=== PATIENT | male | born 1940 | race Caucasian/White ===

== ENCOUNTER 2018-01-15 12:38 | Outpatient (CLI) | payer MEDICARE, BC ==
--- NOTE | 2018-01-15 14:26 | RAD ---
TWO VIEWS CHEST: Comparison: 06-14-14 History: Shortness of breath. FINDINGS: Single view of the chest shows a normal sized cardiomediastinal silhouette. There is no evidence of c onsolidation, mass, or pleural effusion. Degenerative changes are seen in the spine. IMPRESSION: No evidence of acute cardiopulmonary disease. POS: [facility]
--- NOTE | 2018-01-15 14:53 | NM ---
VQ SCAN: Date: 01/15/18 HISTORY: Pulmonary hypertension, unspecified. TECHNIQUE: Ventilation perfusion scan was performed using 20 mCi Xenon-133 by inhalation for the ventilation calixto dy followed by the intravenous administration of 6 mCi technetium-99m MAA for the perfusion scan. FINDINGS: Comparison made with chest radiograph of same date. Fairly homogeneous tracer distribution is seen in the lungs on both ventilation and perfusion studies without mismatched, pleural based, wedge-shaped, segmental or subsegmental perfusion defects. There is tracer retention in the lungs bilaterally on the washout phase of the ventilation study consistent with COPD. IMPRESSION: Very low probability for pulmonary embolism. POS: [facility]
== END 2018-01-15 12:39 | disposition home or self-care (01) ==
LOC: NM 12:38
DX: I27.20 Pulmonary hypertension, unspecified (principal)
CPT/HCPCS: 71046; 78582; A9540; A9558

== ENCOUNTER 2019-05-20 12:25 | Inpatient (IN) | payer MEDICARE, BC ==
[~2019-05-20 12:25] MED LIST: Iopamidol 370 76% 100 ML VIAL ONE
[2019-05-20 13:15] LABS: #Basophils 0.1 thou/uL (0.0-0.2); #Eosinphils 0.5 thou/uL (0.0-0.7); #Lymphocytes 1.3 thou/uL (1.20-3.40); #Monocytes 0.6 thou/uL (0.11-0.59); #Neutrophils 4.2 thou/uL (1.40-6.50); %Basophils 0.8 % (0.0-1.0); %Eosinophils 7.5 % (0.0-10.0); %Lymphocytes 19.2 % (21.0-51.0); %Monocytes 8.9 % (0.0-10.0); %Neutrophils 63.6 % (42.0-75.0); Hemoglobin 14.8 g/dL (14.0-18.0); Mean Corpuscular HGB CONC 32.4 g/dL (32.0-36.0); Mean Corpuscular Hemoglobin 32.5 pg (27.0-31.0); Mean Platelet Volume 7.1 fL (7.4-10.4); Platelet Count 224 thou/uL (130-400); RBC Distribution Width 12.6 % (11.5-14.5); Red Blood Cell (RBC) Count 4.55 mill/uL (4.70-6.10); White Blood Cell (WBC) Count 6.6 thou/uL (4.8-10.8)
[2019-05-20 13:25] LABS: ALT (SGPT) 13 U/L (8-55); AST (SGOT) 23 U/L (5-34); Albumin 4.7 g/dL (3.4-4.8); Alkaline Phosphatase 56 U/L (40-110); Anion Gap 18 mmol/L (10-20); BUN (Urea Nitrogen) 16 mg/dL (8.4-25.7); Bilirubin, Total 1.4 mg/dL (0.2-1.2); Calc. Creatinine Clearance 0 mL/min (70-130); Calcium 10.6 mg/dL (7.8-10.44); Carbon Dioxide 25 mmol/L (23-31); Chloride 100 mmol/L (98-107); Estimated GFR-MDRD 49; Globulin 2.7 g/dL (2.4-3.5); Glucose 104 mg/dL (83-110); Lipase 21 U/L (8-78); Potassium 3.7 mmol/L (3.5-5.1); Protein, Total 7.4 g/dL (5.8-8.1); Sodium 139 mmol/L (136-145)
[2019-05-20 13:58] LABS: Bilirubin Negative (Negative); Blood, Urine Negative (Negative); Clarity Clear (Clear); Glucose, Urine (Dipstick) Negative (Negative); Leukocyte Negative (Negative); Nitrite Negative (Negative); Protein, Urine (Dipstick) Negative (Neg-Trace); Urobilinogen 0.2 mg/dL (Less than 2)
--- NOTE | 2019-05-20 14:20 | CT ---
CT ABDOMEN AND PELVIS WITH IV CONTRAST: INDICATIONS: Abdominal pain. COMPARISON: None. FINDINGS: Images through the lung bases reveal dense atelectasis or infiltrate posterior lung bases with peribr onchial cuffing and stranding. There is a diaphragmatic hernia with a portion of the stomach fixed ab ove the diaphragm. There is cardiomegaly. The liver, spleen and pancreas appear unremarkable. The adrenal glands are unremarkable. Review of the kidneys shows at least three low density lesions involving the lower pole of the left k idney. Two of these are exophytic, measuring 1.2 to 1.3 cm. Both these lesions have indeterminate den sities, which could represent complex cysts. There is a more cystic appearing lesion measuring 1.3 cm inferior pole. No hydronephrosis or urinary tract calculus. The kidneys are otherwise unremarkable. The small bowel loops are of normal caliber. There is gaseous dilatation of the colon. There is rather prominent gaseous dilatation of the left co may and sigmoid colon. There is prominent stool in the sigmoid colon. There is twisting of the sigmoid colon, consistent with a sigmoid volvulus. The distal sigmoid colon and rectosigmoid region is decompressed. Images through the pelvis show mild prostatic hypertrophy. The urinary bladder is unremarkable. The a vi is of normal caliber. No free fluid. There is a right inguinal hernia with mesenteric fat herniated into a dilated right inguinal ring. The osseous structures are unremarkable. IMPRESSION: 1. Evidence of a sigmoid volvulus, which is producing colon dilatation. 2. Indeterminate low density lesions in the left kidney. Recommend follow-up elective renal ultrasoun d to further characterize. 3. A fixed diaphragmatic hernia with a significant portion of the stomach above the diaphragm. 4. Dense atelectasis in the posterior lung bases. 5. Right inguinal hernia. Findings were relayed to Dr. Guy at the time of the dictation. CODE CR POS: [facility]
[2019-05-20] MEDS ORDERED: Lidocaine 1% PF 5 ML VIAL ONE (16:08)
[2019-05-20] MEDS ORDERED: ePHEDrine 50 MG/ML VIAL ONE (16:08)
[2019-05-20] MEDS ORDERED: Ondansetron PF 4 MG/2 ML Vial ONE (16:08)
[2019-05-20] MEDS ORDERED: PROPOFOL 200 MG/20 ML VIAL ONE (16:08)
[2019-05-20] MEDS ORDERED: Succinylcholine Chloride 20 MG/ML 10 ml SYRINGE FS ONE (16:08)
[2019-05-20] MEDS: Sodium Chloride 0.9% 1,000 ML IV SCH (17:18)
[2019-05-20] MEDS ORDERED: hydrALAZINE 20 MG/ML VIAL SLOW IVP PRN (17:21)
[2019-05-20] MEDS ORDERED: Ondansetron PF 4 MG/2 ML Vial IVP PRN (17:21)
--- NOTE | 2019-05-20 19:42 | HP ---
PRIMARY CARE PHYSICIAN: Dr. Walker. CHIEF COMPLAINT: Abdominal pain. HISTORY OF PRESENT ILLNESS: Mr. Loving is a pleasant 78-year-old gentleman, who has a history of hypertension and sleep apnea. He says that on Saturday he started noticing some lower abdominal pain. He says it was sharp and it started gradually and then got progressively worse. He denies having any vomiting. He has noted that his stool has been more or less liquid with no blood, but he has had more or less liquid stools for the past year he says. He says he seldom has a solid stool. The pain got progressively worse and he also noted severe abdominal bloating, and for this reason, he came to the ER for evaluation. He was evaluated in the ER and they did a CT scan of the abdomen and found that he had a sigmoid volvulus. He is being admitted for further treatment. The patient denies any chest pain or shortness of breath. He does say that he has pulmonary hypertension, but he says that he has lost about 30 pounds, which was intentional. He is breathing better and he says he can generally climb a flight of steps, but he does have some difficulty with that. Otherwise, no other complaints. REVIEW OF SYSTEMS: All systems were reviewed and negative except for that mentioned in the history of present illness. PAST MEDICAL HISTORY: Significant for hypertension. He has a history of an umbilical hernia and diaphragmatic hernia, sleep apnea on BiPAP and his settings are 17/12. He also has restrictive lung disease, congestive heart failure, and pulmonary hypertension. PAST SURGICAL HISTORY: He has had a colonoscopy 2 years ago as well as bilateral knee surgery. ALLERGIES: NO KNOWN DRUG ALLERGIES. SOCIAL HISTORY: He is a nonsmoker. He occasionally drinks. He would like to be a full code. He is . FAMILY HISTORY: He does not know his history. He said he was adopted when he was 2-day-old. CURRENT MEDICATIONS: Include; 1. Amlodipine 2.5 mg daily. 2. Aspirin 81 mg daily. 3. Calcitriol 0.5 mcg daily. 4. [place]-3 fatty acids 1000 mg twice a day. 5. Furosemide 20 mg daily. 6. Losartan 25 mg a day. 7. Nexium 40 mg daily. 8. Niacin 750 mg daily. 9. Pepcid AC 40 mg twice a day. 10. Potassium chloride 10 mEq daily. 11. Pravastatin 40 mg daily. 12. Spironolactone 25 mg daily. 13. Budesonide inhaled and Perforomist inhaled twice a day. PHYSICAL EXAMINATION: GENERAL: He is alert and oriented. He appears to be in no acute distress. He is well developed and well nourished. VITAL SIGNS: Blood pressure was 128/65, heart rate 78, respiratory rate of 16, temperature is 97.4. HEENT: Pupils are equal, round, and reactive. Extraocular muscles are intact. Sclerae are anicteric. Throat; no erythema, no exudates. NECK: No adenopathy. No bruits. LUNGS: Clear to auscultation. There is no wheezing, no rales, no rhonchi. CARDIOVASCULAR: He has normal S1 and S2. I did not appreciate an S3 or S4. No murmurs, clicks, or rubs. ABDOMEN: Distended. It is soft. He has some lower abdominal tenderness, but there is no rebound, no guarding. Abdomen is tympanic to percussion. Bowel sounds are high-pitched and hypoactive. EXTREMITIES: There is no clubbing or cyanosis. No edema. NEUROLOGICAL: The exam is nonfocal. LABORATORY DATA: White blood cell count 6.6, hemoglobin 14.8, hematocrit is 45.6, and platelet count is 224. Sodium 139, potassium 3.7, chloride is 100, CO2 is 25, BUN of 16, creatinine 1.4, glucose is 104, total bilirubin was 1.4, but the other liver function tests are normal. Urinalysis was negative. IMAGING STUDIES: Again, CT scan showed findings consistent with a sigmoid volvulus and some areas of low-density lesions in the left kidney and fixed diaphragmatic hernia. PLAN AND ASSESSMENT: 1. This is a pleasant 78-year-old gentleman, who presents with abdominal pain and found to have a sigmoid volvulus. He will be admitted and GI will be consulted to see if this can be decompressed via colonoscopy. The patient will be left n.p.o. and we will place him on cautious IV fluids. 2. History of sleep apnea. He will continue his BiPAP nocturnally. He brought his own machine. 3. Hypertension. Since he will be n.p.o., we will place him on p.r.n. medications, and once he is able to tolerate p.o., then we will restart his home medications. The patient will also be placed on deep venous thrombosis and gastrointestinal prophylaxis. Job ID: [id number]
[2019-05-20] MEDS ORDERED: Fentanyl 100 MCG/2 ML VIAL ONE (19:43)
[2019-05-20] MEDS ORDERED: Ondansetron HCl/PF 4 MG/2 ML Vial IVP PRN (20:29)
[2019-05-20] MEDS ORDERED: Promethazine HCl 25 MG/ML VIAL SLOW IVP PRN (20:29)
[2019-05-20] MEDS ORDERED: Promethazine HCl 25 MG/ML VIAL IM PRN (20:29)
--- NOTE | 2019-05-20 20:48 | CON ---
DATE OF CONSULTATION: 05/20/2019 CHIEF COMPLAINT: Abdominal pain and distention and cramps. HISTORY OF PRESENT ILLNESS: Mr. Loving is a 78-year-old male, who presented to [facility] with a 5-day history of having recurrent abdominal cramps and pain. He describes the cramps as being severe, at times doubled him over. He also has no progressive distention of his abdomen. There is no nausea or vomiting. The patient has a known right inguinal hernia, which he tried to reduce, but without much relief of his abdominal symptoms. Over the last 5 days, he has had 2 small volume liquid stools. There is no blood per rectum. He denies any fevers or chills. A CT scan from the ER demonstrated sigmoid volvulus. The patient has had colonoscopy for polyps, last of which was 2 years ago. He has a known large hiatal hernia with Harp esophagus. PAST MEDICAL HISTORY: 1. Pulmonary hypertension. 2. Congestive heart failure. 3. Hypertension. 4. GE reflux disease. 5. Harp esophagus. 6. Colon polyps. 7. Status post left knee replacement. 8. Ventral hernia repair. ALLERGIES: NONE. MEDICATION AT HOME: Include: 1. Amlodipine. 2. Aspirin. 3. Fish oil. 4. Furosemide. 5. Losartan. 6. Nexium. 7. Niacin. 8. Pepcid AC p.r.n. 9. Pravastatin. 10. Budesonide inhaler. SOCIAL HISTORY: The patient is . He denies any tobacco usage. Infrequent alcohol consumption. FAMILY HISTORY: Negative for any known GI problem, liver disease, or GI malignancy. REVIEW OF SYSTEMS: Ten-point review of systems did not show any other pertinent positives or negatives, no other symptoms other than reported above. PHYSICAL EXAMINATION: VITAL SIGNS: Temperature is 97.6, blood pressure 122/67, pulse is 61. GENERAL: He is alert, in no distress. HEENT: Shows anicteric sclerae. Oropharynx is clear. NECK: Supple. CARDIOVASCULAR: Shows normal S1 and S2. Regular rate and rhythm. CHEST: Shows breath sounds. ABDOMEN: Distended and diffusely tympanitic. No audible bowel sounds. However, no tenderness elicited. EXTREMITIES: Show no edema. LABORATORY DATA: WBC 6.6, hemoglobin 14.8, and platelet count of 224. Electrolytes within normal range. Creatinine 1.4, bilirubin 1.4, AST 23, ALT 13, alkaline phosphatase 56, lipase 21. DIAGNOSTIC STUDIES: Abdominopelvic CT showed evidence of sigmoid volvulus with proximal colon dilatation. He also has a hernia with significant portion of stomach above the diaphragm and a right inguinal hernia. ASSESSMENT: Sigmoid volvulus by CT, which correlates with his clinical symptoms. The patient does not appear toxic and his abdominal exam is benign. RECOMMENDATION: Colonoscopy tonight to reduce volvulus and decompression. Indication including risks was discussed with Mr. Loving and his . All questions answered. Job ID: [id number]
[2019-05-20] MEDS ORDERED: Lidocaine 2% Viscous Solution 10 ML, Aluminum & Magnesium Hydroxide 30 ML SSW SCH (23:45)
[2019-05-20] MEDS ORDERED: Famotidine/PF 20 mg/2ml Vial SLOW IVP SCH (23:45)
[2019-05-21] MEDS: Sodium Chloride 0.9% 1,000 ML IV SCH (00:12)
--- NOTE | 2019-05-21 01:54 | OP ---
DATE OF PROCEDURE: 05/20/2019 PROCEDURE PERFORMED: Colonoscopy with decompression. PREMEDICATION: Given by Anesthesiology Department. PREPROCEDURE DIAGNOSES: 1. Sigmoid volvulus. 2. Severe abdominal distention. POSTPROCEDURE DIAGNOSES: 1. Sigmoid volvulus, status post detorsion and decompression. 2. Normal and viable proximal colonic mucosa. DESCRIPTION OF PROCEDURE: Written consents were obtained prior to procedure. After adequate sedation, rectal exam performed was normal. The endoscope was advanced into the rectum. There was retained liquid stool. The scope was carefully advanced up to the decompressed distal colon. The endoscope was carefully navigated through the twist and turn, which opens up into a dilated colon at approximately 70 cm. On further discussion, the scope was further advanced up through the dilated colon to 100 cm. The mucosa appears normal without any sign of ischemia. The proximal colon was then decompressed nicely. The instruments were carefully and slowly withdrawn for a good decompression. The colonoscope was then removed. The patient tolerated the procedure well. ASSESSMENT: 1. Status post successful detorsion of sigmoid volvulus with decompression. 2. Normal healthy mucosa in proximal colon. RECOMMENDATIONS: 1. We will obtain KUB in a.m. 2. Surgical consult in a.m. Job ID: [id number]
[2019-05-21 05:47] LABS: #Basophils 0.1 thou/uL (0.0-0.2); #Eosinphils 0.5 thou/uL (0.0-0.7); #Lymphocytes 1.2 thou/uL (1.20-3.40); #Monocytes 0.6 thou/uL (0.11-0.59); #Neutrophils 2.9 thou/uL (1.40-6.50); %Basophils 0.9 % (0.0-1.0); %Eosinophils 9.5 % (0.0-10.0); %Lymphocytes 23.1 % (21.0-51.0); %Monocytes 11.9 % (0.0-10.0); %Neutrophils 54.6 % (42.0-75.0); Hemoglobin 12.7 g/dL (14.0-18.0); Mean Corpuscular HGB CONC 32.9 g/dL (32.0-36.0); Mean Corpuscular Hemoglobin 32.8 pg (27.0-31.0); Mean Corpuscular Volume 99.9 fL (78.0-98.0); Mean Platelet Volume 6.5 fL (7.4-10.4); Platelet Count 175 thou/uL (130-400); RBC Distribution Width 12.3 % (11.5-14.5); Red Blood Cell (RBC) Count 3.87 mill/uL (4.70-6.10); White Blood Cell (WBC) Count 5.3 thou/uL (4.8-10.8)
[2019-05-21 06:10] LABS: Anion Gap 11 mmol/L (10-20); BUN (Urea Nitrogen) 12 mg/dL (8.4-25.7); Calc. Creatinine Clearance 88 mL/min (70-130); Calcium 9.1 mg/dL (7.8-10.44); Carbon Dioxide 26 mmol/L (23-31); Chloride 103 mmol/L (98-107); Estimated GFR-MDRD 69; Glucose 97 mg/dL (83-110); Potassium 3.2 mmol/L (3.5-5.1); Sodium 137 mmol/L (136-145)
[2019-05-21] MEDS: Famotidine/PF 20 mg/2ml Vial SLOW IVP SCH (08:03)
[2019-05-21] MEDS: Potassium Chloride 20 MEQ TAB PO SCH ×2 (08:03→22:59)
[2019-05-21] MEDS ORDERED: Enoxaparin Sodium 30 MG/0.3 ML SYRINGE SC SCH (09:00)
--- NOTE | 2019-05-21 09:11 | RAD ---
2 view abdomen series CLINICAL INDICATION: Pain, with history of sigmoid volvulus, which reportedly is status post decompre ssion FINDINGS: Lung bases reveal mild patchy densities, medially. No free air. There is persistent, significant colonic dilatation when comparing to recent CT abdomen exam, which i s related to the patient's sigmoid volvulus. No acute osseous pathology. IMPRESSION: Persistent, marked colonic dilatation related to sigmoid volvulus.
[2019-05-21] MEDS ORDERED: Lidocaine 1% PF 5 ML VIAL ONE (11:47)
[2019-05-21] MEDS ORDERED: PROPOFOL 200 MG/20 ML VIAL ONE (11:47)
[2019-05-21] MEDS ORDERED: Succinylcholine Chloride 20 MG/ML 10 ml SYRINGE FS ONE (11:47)
[2019-05-21] MEDS ORDERED: Glycopyrrolate 0.2 MG/ML 5 ML SYRINGE ONE (11:47)
[2019-05-21] MEDS ORDERED: Rocuronium Bromide 10 MG/ML (10ML VIAL) ONE (11:47)
[2019-05-21] MEDS ORDERED: Meropenem 2 GM, Admixture Fee 1 EACH in Sodium Chloride 0.9% 100 ML IVPB SCH (14:30)
[2019-05-21] MEDS ORDERED: Sodium Chloride 0.9% 1,000 ML IV SCH (14:30)
--- NOTE | 2019-05-21 15:10 | HP ---
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 He has had two knee replacements, left revision. He presented with abdominal pain. CAT scan in the ER yesterday revealed sigmoid volvulus. He was seen by Dr. Rowdy Tanner, who performed a colonoscopy and decompressed him last night. Followup x-ray today revealed distention of his colon and re-formation of a sigmoid volvulus. The patient states that he felt better yesterday, but is becoming increasingly more distended and tympanitic today. He has had some bowel movements and passed flatus. However, his x-ray as stated above shows tremendous right colon distention in his sigmoid. ALLERGIES: NONE. TOBACCO: None. ALCOHOL: None. MEDICATIONS: 1. Niacin 1500 mg at bedtime. 2. Aspirin 81 mg at bedtime. 3. Losartan 25 mg at bedtime. 4. Perforomist 20 mcg IH b.i.d. 5. Budesonide 0.5 mg IH b.i.d. 6. Spironolactone 25 daily. 7. Pravastatin 40 mg a day. 8. Potassium chloride 10 mEq a day. 9. Pepcid 40 mg b.i.d. 10. Nexium 20 mg a day. 11. Lasix 20 mg a day. 12. Calcitriol 0.25 mcg daily. 13. Amlodipine 10 mg daily. PAST SURGICAL HISTORY: Left total knee replacement and subsequent revision. Umbilical hernia repair [address] Olivo. PAST MEDICAL HISTORY: Hypertension, which has resolved with intentional weight loss of 40 pounds since January. He is on a 1200-calorie a day diet to facilitate weight reduction. The patient has pulmonary hypertension. He is followed by Dr. Salinas. I have discussed this with Dr. Salinas. The patient had a normal cardiac catheterization last year with minimal coronary artery disease, normal coronary arteries. He had an echocardiogram in [place] last year and repeat echocardiogram last week in Dr. Salinas's office. Echocardiogram reveals right ventricular pressure 70/12, right atrial pressure 8. Normal ejection fraction. EF is 65%, mild mitral regurgitation, moderate to severe tricuspid insufficiency. Dr. Salinas stated the patient is safe to proceed with surgery under general anesthetic as indicated. The patient has sleep apnea, wears a BiPAP. He is using that in the hospital. REVIEW OF SYSTEMS: Ten-point noncontributory. PHYSICAL EXAMINATION: VITAL SIGNS: Height 5 feet 10 inches, 238 pounds, 34 BMI. Temperature 97.5, pulse 60, blood pressure 141/64, and respiratory rate 16. HEAD, EYES, EARS, NOSE, AND THROAT: Unremarkable. LUNGS: Clear to auscultation. CARDIAC: Regular rate and rhythm with mild 2-3/6 ejection murmur. ABDOMEN: Distended, tympanitic. Mild tenderness is right abdomen with mild guarding. No peritoneal signs. EXTREMITIES: Unremarkable. No ankle edema. LABORATORY DATA: White count 5, hemoglobin 12. Basic metabolic profile normal. BUN 12, creatinine 1.04. ASSESSMENT: 1. Sigmoid volvulus. This was decompressed yesterday, but has recurred according to x-ray and his clinical course today, although this is partially obstructed as he is having some liquid stool. He, however, has distended tympanitic and this is worsening through the day with increased pain. Radiologically, he has recurrent volvulus. I have spent more than 30 to 40 minutes discussing this with the patient and his answering questions regarding recommended laparotomy, colon resection, and probable colostomy. I informed him of the risk of performing an anastomosis in an unprepped colon with size discrepancy and distention, especially considering his comorbidities of his sleep apnea and pulmonary hypertension. The patient is agreeable. We will proceed with general anesthesia, TAP block, exploratory laparotomy, colon resection, most likely colostomy. We will place a central line, if indicated. He understands the risks and benefits and consents. I have discussed with him colostomy management. We will have colostomy therapy see him to discuss this with him. 2. Sleep apnea. BiPAP use. 3. Intentional weight loss of 30 pounds since January resolving his hypertension. 4. Pulmonary hypertension, valvular disorder. Normal coronary arteries by catheterization last year. Repeat echo earlier this week, results as noted above. PLAN: This operation today. He understands risks and benefits, and consents. Job ID: [id number]
--- NOTE | 2019-05-21 15:28 | PDOC.HOSPP ---
- Subjective Encounter Date: 05/21/19 Encounter Time: 15:27 Subjective: Mr. Loving was seen today in follow-up of sigmoid volvulous. He continues to have abdominal distention, and some lower abdominal pain. - Objective Vital Signs & Weight: Vital Signs (12 hours) Temp Pulse Resp BP Pulse Ox 05/21/19 11:40 97.5 F L 60 16 141/64 H 95 05/21/19 07:45 97.4 F L 66 16 122/63 91 L 05/21/19 05:32 60 105/57 L 05/21/19 04:10 97.6 F 60 16 99/58 L 96 Weight Admit Weight 238 lb Weight 238 lb I&O: 05/20/19 05/21/19 05/22/19 06:59 06:59 06:59 Intake Total 555 Balance 555 Result Diagrams: 05/21/19 05:34 05/21/19 05:34 Hospitalist ROS - Medication Medications: Active Medications Generic Name Dose Route Start Last Admin Trade Name Freq PRN Reason Stop Dose Admin Enoxaparin Sodium 30 mg 05/21/19 09:00 05/21/19 08:03 Lovenox SC 30 mg 0900 TATYANA Administration Famotidine 20 mg 05/21/19 09:00 05/21/19 08:03 Pepcid SLOW IVP 20 mg Q12HR TATYANA Administration Sodium Chloride 1,000 mls @ 120 mls/hr 05/21/19 14:30 05/21/19 14:55 Normal Saline 0.9% IV 1,000 mls .[id number] TATYANA Administration Potassium Chloride 20 meq 05/21/19 08:00 05/21/19 08:03 K-Dur PO 05/21/19 17:01 20 meq BID-WM TATYANA Administration Sodium Chloride 10 ml 05/21/19 09:00 05/21/19 08:04 Flush - Normal Saline IVF 10 ml Q12HR TATYANA Administration - Exam Eye: PERRL Heart: RRR, no murmur, no gallops, no rubs, normal peripheral pulses Respiratory: CTAB, no wheezes, no rales, no ronchi, normal chest expansion Gastrointestinal: soft, no palpable masses (+ tympanic, to percussion, and high pitched infrequent bowel sounds), distended Extremities: no edema Hosp A/P (1) Sigmoid volvulus Status: Acute (2) Hypertension Code(s): I10 - ESSENTIAL (PRIMARY) HYPERTENSION Status: Chronic (3) Sleep apnea Code(s): G47.30 - SLEEP APNEA, UNSPECIFIED Status: Acute - Plan * Sigmoid Volvulous- he had an attempt at decompression with colonoscopy. however it was not completely decompressed * General Surgery has been consulted, and the plan is for surgical correction * HTN- blood pressure is stable * FELIPE - continue BiPAP nocturnal
[2019-05-21] MEDS ORDERED: Acetaminophen 1,000 MG in Premix Bag 1 BAG IVPB PRN (16:42)
[2019-05-21] MEDS ORDERED: Ketorolac Tromethamine 30 MG/ML VIAL IVP PRN (16:42)
[2019-05-21] MEDS ORDERED: Bupivacaine PF 0.5% 30 ML VIAL ONE (16:49)
[2019-05-21] MEDS ORDERED: Fentanyl 100 MCG/2 ML VIAL ONE ×5 (16:49→21:03)
[2019-05-21] MEDS ORDERED: Dexamethasone 4 mg/ml Vial ONE (16:49)
[2019-05-21] MEDS ORDERED: Midazolam HCl 2 mg/2 ml Vial ONE ×2 (16:49→21:05)
[2019-05-21] MEDS ORDERED: Lidocaine 2% 10 ML INJ ONE (16:57)
[2019-05-21] MEDS ORDERED: Lidocaine 1% (PF) 30 ML VIAL ONE (16:57)
[2019-05-21] MEDS ORDERED: Ondansetron ODT 4 MG TAB SL PRN (19:42)
[2019-05-21] MEDS ORDERED: Ondansetron PF 4 MG/2 ML Vial IVP PRN (19:42)
[2019-05-21] MEDS ORDERED: Ondansetron ODT 4 MG TAB PO PRN (19:42)
[2019-05-21] MEDS ORDERED: Ondansetron ORAL SOLN. 4 MG/5 ML UDCUP PO PRN ×2 (19:42)
[2019-05-21] MEDS ORDERED: Ketorolac Tromethamine 30 MG/ML VIAL ONE (20:02)
[2019-05-21] MEDS ORDERED: Promethazine HCl 25 MG/ML VIAL ONE (20:22)
--- NOTE | 2019-05-21 20:31 | RAD ---
PORTABLE CHEST: 05/21/19 HISTORY: CCU follow-up. COMPARISON: 01/15/18. Poor inspiration. Bibasilar infiltrates or atelectasis cannot be excluded. Small effusions cannot be excluded. Mild vascular engorgement. Central line via the left subclavian has tip overlying the brac hiocephalic and SVC junction. No infiltrate or edema seen within the aerated portions of the upper oliva ngs. IMPRESSION: Suboptimal exam due to poor inspiration. Bibasilar infiltrates or atelectasis is not excluded. POS: [facility]
[2019-05-21] MEDS ORDERED: Naloxone HCl 0.4 mg/ml Vial ONE (20:37)
[2019-05-21] MEDS ORDERED: Aspirin 81 mg Enteric Coated Tablet PO SCH (21:00)
[2019-05-21] MEDS ORDERED: Pravastatin Sodium 40 MG TAB PO SCH (21:00)
[2019-05-21] MEDS ORDERED: Amiodarone 150 MG/3 ML VIAL ONE (21:01)
[2019-05-21 21:03] LABS: Actual Bicarbonate (HCO3a) 22.9 mEq/L (22-28); Base Excess (BEa) -6.2 mEq/L (-2.0 to +3.0); Calcium, Ionized 1.66 mmol/L (1.12-1.30); Carboxyhemoglobin (COHb) 1.3 gm% (0.0-3.0); Hemoglobin (Hb) 15.3 g/dL (14.0-18.0); O2 Tension (PaO2) 277.4 mmHg (> 70.0); Potassium - ABG Lab 3.67 mmol/L (3.70-5.30)
[2019-05-21 21:05] LABS: ALV-art Gradient 360.225 (0-20); CO2 Tension 60.3 mmHg (35.0-45.0); Puncture Site L FEMORAL
[2019-05-21] MEDS ORDERED: Propofol BOLUS 1,000 MG/100 ML VIAL IV PRN (21:12)
[2019-05-21] MEDS ORDERED: Fentanyl BOLUS 250 ML IVPB PRN (21:12)
[2019-05-21] MEDS ORDERED: Morphine 2 MG/ML SYRINGE SLOW IVP PRN (21:12)
[2019-05-21] MEDS ORDERED: Lorazepam 2 MG/ML VIAL SLOW IVP PRN (21:12)
[2019-05-21] MEDS ORDERED: Propofol 1,000 MG/100 ML VIAL IV PRN (21:12)
[2019-05-21] MEDS ORDERED: fentaNYL Citrate/PF 2,000 MCG in Sodium Chloride 0.9% 60 ML IV SCH (21:12)
[2019-05-21] MEDS ORDERED: DISCONTINUE PREVIOUS NARCOTIC PAIN MEDICATIONS AND BENZODIAZEPINES FS SCH (21:12)
[2019-05-21] MEDS ORDERED: Propofol 1,000 MG/100 ML VIAL IV ONE (21:13)
[2019-05-21] MEDS ORDERED: Ventilator Sedation Protocol 1 EACH FS SCH (21:15)
[2019-05-21 21:38] LABS: #Basophils 0.1 thou/uL (0.0-0.2); #Eosinphils 0.1 thou/uL (0.0-0.7); #Lymphocytes 2.1 thou/uL (1.20-3.40); #Monocytes 0.5 thou/uL (0.11-0.59); #Neutrophils 12.3 thou/uL (1.40-6.50); %Basophils 0.3 % (0.0-1.0); %Eosinophils 0.9 % (0.0-10.0); %Lymphocytes 13.9 % (21.0-51.0); %Neutrophils 81.9 % (42.0-75.0); Hemoglobin 14.5 g/dL (14.0-18.0); Mean Corpuscular HGB CONC 31.7 g/dL (32.0-36.0); Mean Corpuscular Hemoglobin 32.3 pg (27.0-31.0); Mean Platelet Volume 7.3 fL (7.4-10.4); Platelet Count 228 thou/uL (130-400); RBC Distribution Width 12.5 % (11.5-14.5)
[2019-05-21 21:48] LABS: Anion Gap 13 mmol/L (10-20); BUN (Urea Nitrogen) 9 mg/dL (8.4-25.7); Calc. Creatinine Clearance 76 mL/min (70-130); Calcium 13.5 mg/dL (7.8-10.44); Carbon Dioxide 26 mmol/L (23-31); Chloride 104 mmol/L (98-107); Estimated GFR-MDRD 58; Glucose 159 mg/dL (83-110); Magnesium 3.9 mg/dL (1.6-2.6); Potassium 3.7 mmol/L (3.5-5.1); Sodium 139 mmol/L (136-145)
[2019-05-21 22:05] LABS: Actual Bicarbonate (HCO3a) 21.6 mEq/L (22-28); Base Excess (BEa) -5.2 mEq/L (-2.0 to +3.0); CO2 Tension 46.4 mmHg (35.0-45.0); Calcium, Ionized 1.34 mmol/L (1.12-1.30); Carboxyhemoglobin (COHb) 1.4 gm% (0.0-3.0); Hemoglobin (Hb) 14.2 g/dL (14.0-18.0); Potassium - ABG Lab 3.47 mmol/L (3.70-5.30); pH, Arterial 7.29 (7.35-7.45)
[2019-05-21 22:11] LABS: O2 Tension (PaO2) 55.4 mmHg (> 70.0); Puncture Site LRA
[2019-05-21] MEDS ORDERED: Lactated Ringer's 1,000 ML IV SCH (22:15)
[2019-05-21] MEDS: Ketorolac Tromethamine 30 MG/ML VIAL IVP SCH (22:59)
[2019-05-21] MEDS: Acetaminophen 1,000 MG in Premix Bag 1 BAG IVPB SCH (22:59)
[2019-05-21] MEDS: Niacin 500 MG TAB PO SCH (23:01)
[2019-05-21] MEDS: Losartan 25 MG TAB PO SCH (23:01)
[2019-05-21 23:06] LABS: Troponin I 0.038 ng/mL (< 0.028)
[2019-05-21] MEDS ORDERED: Amiodarone 450 MG, Admixture Fee 1 EACH in Dextrose 5% in Water 250 ML IVPB SCH (23:30)
--- NOTE | 2019-05-21 23:50 | RAD ---
PORTABLE AP CHEST X-RAY 05/21/19 HISTORY: On ventilator. Follow-up evaluation. COMPARISON: 05/21/19 at 1932 hours. FINDINGS: There has been interval placement of an endotracheal tube with tip overlying T5 vertebral body and ap pears to be above the level of the asif. Left subclavian central venous catheter remains in place. Pacing pad overlies the medial left lung base. The cardiac silhouette and bronchovascular markings ar e accentuated by patient positioning and shallow depth of inspiration as well as portable technique. There is mild elevation of the right hemidiaphragm with suggestion of volume loss at each lung base. No other interval change. IMPRESSION: Interval placement of an endotracheal tube which appears to be above the level of the asif. POS: [facility]
--- NOTE | 2019-05-21 23:54 | RAD ---
PORTABLE AP CHEST X-RAY: 05/21/19 HISTORY: Evaluate tube positioning. COMPARISON: 05/21/19 at 2107 hours. FINDINGS: The endotracheal tube has been withdrawn with its tip overlying the T4 vertebral body and above the l evel of the asif. Left subclavian central venous catheter remains in place. Pacing pads again overl ie the chest. There is elevation of the right hemidiaphragm. There is mild prominence of perihilar interstitial densities which may be accentuation due to shallow depth of inspiration and portable rizwana hnique. An element of mild pulmonary edema cannot be entirely excluded. There is an additional radiop aque catheter overlying the mid chest which may actually represent a nasogastric tube which courses i nto the upper abdomen and incompletely visualized. IMPRESSION: Interval repositioning of endotracheal tube with is above the level of the asif with interval place ment of a nasogastric tube. POS: [facility]
[2019-05-22] MEDS: Potassium Chloride 20 MEQ in Lactated Ringer's 1,000 ML IV SCH ×3 (00:18→17:59)
[2019-05-22] MEDS: Acetaminophen 1,000 MG in Premix Bag 1 BAG IVPB SCH ×2 (00:19→05:49)
[2019-05-22] MEDS: Famotidine/PF 20 mg/2ml Vial SLOW IVP SCH ×2 (00:19→08:33)
[2019-05-22] MEDS: Enoxaparin Sodium 40 MG/0.4 ML SYRINGE SC SCH ×2 (00:19→20:18)
[2019-05-22] MEDS: Ketorolac Tromethamine 30 MG/ML VIAL IVP SCH ×5 (00:19→23:38)
--- NOTE | 2019-05-22 00:21 | OP ---
DATE OF PROCEDURE: 05/21/2019 PREOPERATIVE DIAGNOSIS: Sigmoid volvulus, status post decompression by Dr. Tanner yesterday, colonoscopy 2 years ago. POSTOPERATIVE DIAGNOSIS: Sigmoid volvulus, status post decompression by Dr. Tanner yesterday, colonoscopy 2 years ago. PROCEDURE PERFORMED: Laparotomy, sigmoid colectomy, colorectal 31 mm EEA stapled anastomosis checked under water and no leak, left subclavian vein central line. ANESTHESIA: General/TAP block. ESTIMATED BLOOD LOSS: 200 mL. BLOOD TRANSFUSED: None. FINDINGS: The patient had a large redundant sigmoid colon, it was dilated, proximal colon was not dilated. Therefore, anastomosis was performed. DESCRIPTION OF PROCEDURE: The patient was taken to the operating room where under general anesthesia, the antecubital IV was infiltrated and left subclavian vein triple-lumen catheter placed using Seldinger technique after ChloraPrep. J-wire had been removed. Catheter secured with 2 interrupted sutures of 3-0 silk. Sterile dressing applied. Each port aspirated blood, flushed with saline solution, connected to IV fluid. Abdomen was prepared with ChloraPrep and draped in routine fashion. The patient was later placed in dorsal lithotomy and the buttocks, perianal area, perineum prepared with Betadine and draped in routine fashion. Infraumbilical incision made from right of the umbilicus subcutaneous tissue, midline fascia, and abdominal cavity sharply. Sigmoid colon was markedly dilated and redundant. There was evidence of a point of torsion. The proximal colon was mobilized near the pelvic reflection and the mesentery was serially divided doubly firing the LigaSure down toward the rectosigmoid, which was divided with a contour stapler. The proximal colon easily reached into the pelvis because there was not a size discrepancy and colon was fairly well prepped and the patient was stable. Anastomosis was undertaken. Colon proximally was divided with a cautery and a pursestring suture of 2-0 Prolene placed and a 31 mm EEA stapler anvil placed and pursestring suture tied around the anvil. Fatty tissue mobilized. Rectal dilators then placed and serially dilated and then 31 mm EEA stapler placed and directed toward the staple line visualized in open procedure using a wound protector. Once it was properly positioned, anvil advanced out the staple line and mated to the proximal anvil and then the colorectal anastomosis was approximated with torque firings using the stapler and the stapler fired, paused, and then loosened and removed, and two intact donuts removed. Staple line checked under water using a proctoscope and there was no leak. Good hemostasis noted. Seprafilm was used with somewhat acceptable application. Midline fascia closed with continuous suture of #1 PDS. The segment of the mesh previously used for umbilical hernia repair partially was removed. The fascia approximated with PDS. Wound was thoroughly irrigated. Good hemostasis noted. Subcutaneous tissues were loosely approximated with 3-0 Monocryl, skin with subdermal 4-0 Monocryl and AMELIA wound suction apparatus applied. The patient tolerated the procedure well. Job ID: [id number]
[2019-05-22 04:33] LABS: #Lymphocytes 0.5 thou/uL (1.20-3.40); #Monocytes 0.4 thou/uL (0.11-0.59); #Neutrophils 8.4 thou/uL (1.40-6.50); %Basophils 0.1 % (0.0-1.0); %Eosinophils 0.2 % (0.0-10.0); %Lymphocytes 4.9 % (21.0-51.0); %Monocytes 3.8 % (0.0-10.0); Hemoglobin 12.9 g/dL (14.0-18.0); Mean Corpuscular HGB CONC 33.2 g/dL (32.0-36.0); Mean Corpuscular Hemoglobin 33.2 pg (27.0-31.0); Mean Platelet Volume 6.9 fL (7.4-10.4); Platelet Count 170 thou/uL (130-400); RBC Distribution Width 12.3 % (11.5-14.5); White Blood Cell (WBC) Count 9.2 thou/uL (4.8-10.8)
[2019-05-22 04:56] LABS: Anion Gap 15 mmol/L (10-20); BUN (Urea Nitrogen) 10 mg/dL (8.4-25.7); Calc. Creatinine Clearance 80 mL/min (70-130); Carbon Dioxide 20 mmol/L (23-31); Chloride 105 mmol/L (98-107); Estimated GFR-MDRD 62; Glucose 152 mg/dL (83-110); Magnesium 2.3 mg/dL (1.6-2.6); Potassium 3.2 mmol/L (3.5-5.1); Sodium 137 mmol/L (136-145)
[2019-05-22] MEDS: Arformoterol 15 MCG/2 ML NEB NEB SCH ×2 (06:25→18:52)
[2019-05-22] MEDS: Budesonide 0.5 MG/2 ML NEB NEB SCH ×2 (06:27→18:53)
[2019-05-22 06:55] LABS: Actual Bicarbonate (HCO3a) 21.8 mEq/L (22-28); Base Excess (BEa) -2.7 mEq/L (-2.0 to +3.0); Calcium, Ionized 1.22 mmol/L (1.12-1.30); Carboxyhemoglobin (COHb) 0.9 gm% (0.0-3.0); Hemoglobin (Hb) 14.1 g/dL (14.0-18.0); O2 Tension (PaO2) 188.2 mmHg (> 70.0); Potassium - ABG Lab 3.66 mmol/L (3.70-5.30); pH, Arterial 7.39 (7.35-7.45)
[2019-05-22 07:02] LABS: Puncture Site RRA
--- NOTE | 2019-05-22 07:57 | RAD ---
Portable chest radiograph: 05/22/2019 COMPARISON: 05/21/2019 HISTORY: Ventilated patient FINDINGS: Stable endotracheal tube, nasogastric tube, and left subclavian vascular catheter. There is nonspecific airspace disease in the right perihilar region\lateral mid right lung zone. Increased density to the left of the cardiac silhouette and inferiorly suggests hiatal hernia formati on. IMPRESSION: Findings suggesting right perihilar airspace disease, nonspecific. Follow-up PA and later al imaging of the chest recommended. This could be on the basis of infectious pneumonitis/aspiration or volume loss.
[2019-05-22] MEDS ORDERED: Potassium Chloride 40 MEQ in Premix Bag 1 BAG IVPB SCH (08:15)
[2019-05-22] MEDS ORDERED: Calcitriol 0.25 MCG CAP PO SCH (09:00)
[2019-05-22] MEDS ORDERED: Pantoprazole 40 MG VIAL IVP SCH (09:00)
[2019-05-22] MEDS ORDERED: Amlodipine 10 MG TAB PO SCH (09:00)
[2019-05-22] MEDS ORDERED: Furosemide 20 MG TAB PO SCH (09:00)
[2019-05-22] MEDS ORDERED: Spironolactone 25 MG TAB PO SCH (09:00)
--- NOTE | 2019-05-22 09:32 | PDOC.GSPN ---
Surgery Progress Note: Obj - Vital signs Vital signs: Vital Signs - Most Recent Temp Pulse Resp BP Pulse Ox 98.6 F 81 28 H 134/72 98 05/22/19 07:00 05/22/19 06:27 05/22/19 06:25 05/22/19 06:27 05/22/19 08:00 - Physical Exam General: no distress Cardiovascular: regular rate and rhythm Respiratory: clear to auscultation Abdomen: decreased bowel sounds, appropriately tender (Mr. Loving' wounds look good without excessive or unexpected erythema. His lower abdomen is appropriately tender to light palpation and does not complain of excessive discomfort.) Hernia: none, inguinal, reducible Surgery Progress Note: Results - Labs Result Diagrams: 05/22/19 04:15 05/22/19 04:15 Lab results: Laboratory Results - last 24 hr 05/21/19 05/21/19 05/21/19 20:54 20:54 20:54 WBC 15.0 H RBC 4.50 L Hgb 14.5 Hct 45.7 MCV 102.0 H MCH 32.3 H MCHC 31.7 L RDW 12.5 Plt Count 228 MPV 7.3 L Neutrophils % 81.9 H Lymphocytes % 13.9 L Monocytes % 3.0 Eosinophils % 0.9 Basophils % 0.3 Neutrophils # 12.3 H Lymphocytes # 2.1 Monocytes # 0.5 Eosinophils # 0.1 Basophils # 0.1 Specimen Type Puncture Site Bicarbonate Actual ABG pH ABG pCO2 ABG pO2 ABG O2 Sat Calc/Krishna ABG O2 Content ABG Base Excess ABG Hematocrit ABG Hemoglobin ABG Oxyhemoglobin ABG Carboxyhemoglobin ABG Methemoglobin ABG Deoxyhemoglobin Brandon Test A-a O2 Gradient Ionized Calcium Mode of Support Mechanical Rate Inspired O2 Tidal Volume Pressure Support PEEP or CPAP Sodium 139 Potassium 3.7 Chloride 104 Carbon Dioxide 26 Anion Gap 13 BUN 9 Creatinine 1.21 Estimated GFR (MDRD) 58 Glucose 159 H Calcium 13.5 H* Magnesium 3.9 H Troponin I 0.038 H 05/21/19 05/22/19 05/22/19 21:53 04:15 04:15 WBC 9.2 RBC 3.90 L Hgb 12.9 L Hct 39.0 L MCV 100.0 H MCH 33.2 H MCHC 33.2 RDW 12.3 Plt Count 170 MPV 6.9 L Neutrophils % 91.0 H Lymphocytes % 4.9 L Monocytes % 3.8 Eosinophils % 0.2 Basophils % 0.1 Neutrophils # 8.4 H Lymphocytes # 0.5 L Monocytes # 0.4 Eosinophils # 0.0 Basophils # 0.0 Specimen Type ARTERIAL Puncture Site LRA Bicarbonate Actual 21.6 L ABG pH 7.29 L ABG pCO2 46.4 H ABG pO2 55.4 L* ABG O2 Sat Calc/Krishna 86.1 L* ABG O2 Content 16.9 L ABG Base Excess -5.2 L ABG Hematocrit 42.0 ABG Hemoglobin 14.2 ABG Oxyhemoglobin 84.6 L ABG Carboxyhemoglobin 1.4 ABG Methemoglobin 0.30 ABG Deoxyhemoglobin 13.7 H Brandon Test POSITIVE A-a O2 Gradient 171.800 H Ionized Calcium 1.34 H Mode of Support SIMV Mechanical Rate 20 Inspired O2 40 Tidal Volume 500 Pressure Support 10 PEEP or CPAP 5.0 Sodium 137 137 Potassium 3.47 L 3.2 L Chloride 102 105 Carbon Dioxide 20 L Anion Gap 15 BUN 10 Creatinine 1.14 Estimated GFR (MDRD) 62 Glucose 152 H Calcium 9.0 Magnesium 2.3 Troponin I 05/22/19 06:30 WBC RBC Hgb Hct MCV MCH MCHC RDW Plt Count MPV Neutrophils % Lymphocytes % Monocytes % Eosinophils % Basophils % Neutrophils # Lymphocytes # Monocytes # Eosinophils # Basophils # Specimen Type ARTERIAL Puncture Site RRA Bicarbonate Actual 21.8 L ABG pH 7.39 ABG pCO2 37.0 ABG pO2 188.2 H ABG O2 Sat Calc/Krishna 99.4 H ABG O2 Content 19.8 ABG Base Excess -2.7 L ABG Hematocrit 41.0 L ABG Hemoglobin 14.1 ABG Oxyhemoglobin 98.2 H ABG Carboxyhemoglobin 0.9 ABG Methemoglobin 0.30 ABG Deoxyhemoglobin 0.6 Brandon Test POSITIVE A-a O2 Gradient 193.350 H Ionized Calcium 1.22 Mode of Support SIMV.PSV Mechanical Rate 22 Inspired O2 60 Tidal Volume 500 Pressure Support 10 PEEP or CPAP 5.0 Sodium 135 Potassium 3.66 L Chloride 102 Carbon Dioxide Anion Gap BUN Creatinine Estimated GFR (MDRD) Glucose Calcium Magnesium Troponin I Surgery Progress Note: A/P - Problem (1) Sigmoid volvulus Current Visit: Yes Status: Acute Assessment and Plan: A: Day-1 s/p laparotomy/sigmoid colectomy P: 1. monitor surgical site for bleeding and signs of infection, bowel sounds, temperature, pain status, n/v 2. consult with cardiology regarding episode of vtach post-op
[2019-05-22] MEDS ORDERED: traMADol HCl 50 MG TAB PO PRN (09:35)
[2019-05-22] MEDS ORDERED: Potassium Chloride 20 MEQ in Lactated Ringer's 1,000 ML IV SCH (09:40)
--- NOTE | 2019-05-22 10:06 | PRG ---
DATE OF SERVICE: 05/22/2019 SUBJECTIVE: Mr. Loving is doing well today. He was seen earlier this morning on the ventilator and was doing well, and he has by the time of this dictation been extubated. He is alert and oriented and appropriate. He complains of some soreness of his chest consistent with recovery room event, postoperative respiratory compromise, probably secondary to narcotics with resulting respiratory acidosis and ventricular fibrillation requiring CPR, defibrillation, and administration of epinephrine, magnesium, and amiodarone for torsades tachyarrhythmia. During the event, the patient was moving his extremities. He did not experience hypoxia. His blood gases just after this exam revealed pCO2 of 60, pH of 7.19, and this was compensated with bicarb administration and ventilatory management. He is hemodynamically stable overnight with some episodes of bradycardia due to amiodarone, which was adjusted accordingly. Nurses' communication with Cardiology, Dr. Gill overnight, resulted and continued the amiodarone and reducing the dose. It was expected that his tachyarrhythmia is due to his acidosis secondary to respiratory problem due to his pulmonary hypertension and sleep apnea. By this morning, his gases are normal, and he has been extubated. His chest x-ray looks good. OG tube was removed. Urine output is good at 2560, and Sandoval catheter will be removed later this morning. OBJECTIVE: VITAL SIGNS: This morning, heart rate is 72, blood pressure 108/60, and respiratory rate 18. LUNGS: Clear to auscultation. CARDIAC: Regular rate and rhythm without murmur or gallop. ABDOMEN: Soft, nontender. Minimal pain at lower incision, infraumbilical, with incisional wound VAC in place. The wound is close beneath, and this suction device will be removed prior to discharge. His OG tube has been removed. EXTREMITIES: Without edema. LABORATORY DATA: White count 9 and hemoglobin 12. Sodium 137, potassium 3.2, carbon dioxide 20, BUN 10, creatinine 1.14, potassium 9 this morning, and magnesium 2.3. Troponin 0.038. ASSESSMENT AND PLAN: The patient has had previous tachyarrhythmias and discussed with Dr. Salinas, consideration of ablation. Probably, this event postoperatively probably related to respiratory acidosis, which has resolved after resolution of that. He has been extubated after an overnight intubation. Plan at this time is to remove his Sandoval later today, advancing the clear liquids to full liquids as tolerated. We will resume his medications per Dr. Salinas who will check on him later, have discussed the case situation with Dr. Salinas's who has seen him this morning. Increase activity. Decrease IV fluids. Follow labs. Replace potassium. Job ID: [id number]
--- NOTE | 2019-05-22 10:16 | PDOC.HOSPP ---
- Subjective Encounter Date: 05/22/19 Encounter Time: 10:12 Subjective: Mr. Loving was seen today in follow-up of sigmoid volvulous. The events of last nigh were noted . He his now extubated, awake and alert, and is having an Echo preformed. He notes some soreness in his chest , but otherwise ok. - Objective Vital Signs & Weight: Vital Signs (12 hours) Temp Pulse Resp BP Pulse Ox 05/22/19 08:00 98 05/22/19 07:00 98.6 F 05/22/19 06:27 81 134/72 05/22/19 06:25 76 28 H 96 05/22/19 06:00 22 H 05/22/19 04:00 98.5 F 22 H 05/22/19 03:16 53 L 22 H 100 05/22/19 02:00 22 H 05/22/19 00:00 98.4 F 22 H 05/21/19 22:36 51 L 22 H 100 05/21/19 22:30 100 Weight Admit Weight 243 lb 6.245 oz Weight 238 lb Most Recent Monitor Data Heart Rate from ECG 72 NIBP 108/60 NIBP BP-Mean 76 Respiration from ECG 18 SpO2 96 I&O: 05/21/19 05/22/19 05/23/19 06:59 06:59 06:59 Intake Total 2659.9 100 Output Total 610 65 Balance 2049.9 35 Result Diagrams: 05/22/19 04:15 05/22/19 04:15 Additional Labs: Accuchecks 05/21/19 05/21/19 21:05 19:56 POC Glucose 121 H 100 Hospitalist ROS - Medication Medications: Active Medications Generic Name Dose Route Start Last Admin Trade Name Freq PRN Reason Stop Dose Admin Albuterol/Ipratropium 3 ml 05/21/19 22:30 05/22/19 06:25 Duoneb NEB 3 ml [id number] TATYANA Administration Arformoterol Tartrate 15 mcg 05/22/19 06:30 05/22/19 06:25 Brovana NEB 15 mcg BID-RT TATYANA Administration Budesonide 0.5 mg 05/22/19 06:30 05/22/19 06:27 Pulmicort Neb Solution NEB 0.5 mg BID-RT TATYANA Administration Calcitriol 0.25 mcg 05/22/19 09:00 05/22/19 08:32 Rocaltrol PO 0.25 mcg DAILY TATYANA Administration Enoxaparin Sodium 40 mg 05/21/19 21:00 05/22/19 00:19 Lovenox SC Not Given 2100 TATYANA Amiodarone HCl 450 mg/ 259 mls @ 0 mls/hr 05/21/19 23:30 05/22/19 05:50 Miscellaneous Medication 1 IVPB 259 mls each/ Dextrose/Water INF TATYANA Administration Protocol As Directed Potassium Chloride 40 meq/ 100 mls @ 25 mls/hr 05/22/19 08:15 05/22/19 08:31 Device IVPB 05/22/19 12:00 100 mls NOW TATYANA Administration Ketorolac Tromethamine 15 mg 05/21/19 18:00 05/22/19 05:49 Toradol IVP 05/26/19 18:01 15 mg Q6HR TATYANA Administration Losartan Potassium 25 mg 05/21/19 21:00 05/21/19 23:01 Cozaar PO Not Given HS TATYANA Niacin 1,500 mg 05/21/19 21:00 05/21/19 23:01 Niacin PO Not Given HS TATYANA Sodium Chloride 10 ml 05/21/19 09:00 05/22/19 08:33 Flush - Normal Saline IVF 10 ml Q12HR TATYANA Administration - Exam Eye: PERRL Heart: RRR, no murmur, no gallops, no rubs Respiratory: CTAB, no wheezes, no rales, no ronchi, normal chest expansion Gastrointestinal: soft, non-distended, normal bowel sounds Extremities: no edema Hosp A/P (1) Sigmoid volvulus Status: Acute (2) Hypertension Code(s): I10 - ESSENTIAL (PRIMARY) HYPERTENSION Status: Chronic (3) Sleep apnea Code(s): G47.30 - SLEEP APNEA, UNSPECIFIED Status: Acute (4) Cardiac arrest Code(s): I46.9 - CARDIAC ARREST, CAUSE UNSPECIFIED Status: Acute - Plan * Sigmoid Volvulous- he is s/p surgery, he went into respiratory distress following surgery, and a code was called. CPR was initiated. He was intubated last night, and has since been extubated, and is awake and alert and following commands.- will await Echo * Hypokalemia- continue potassium replacment * HTN- blood pressure is stable * FELIPE - continue BiPAP nocturnal * Will continue to observe in the ICU
[2019-05-22] MEDS ORDERED: Magnesium 5 GM/10 ML Abboject SYRINGE ONE (11:11)
[2019-05-22 18:52] LABS: Troponin I 0.128 ng/mL (< 0.028)
[2019-05-22] MEDS: Famotidine 20 MG TAB PO SCH (20:17)
[2019-05-22] MEDS: Niacin 500 MG TAB PO SCH (20:17)
[2019-05-22] MEDS: Losartan 25 MG TAB PO SCH (20:17)
[2019-05-22] MEDS: Acetaminophen 500 MG TAB PO PRN (20:18)
[2019-05-22] MEDS: Amiodarone 450 MG, Admixture Fee 1 EACH in Dextrose 5% in Water 250 ML IVPB SCH (20:23)
--- NOTE | 2019-05-23 00:11 | CON ---
DATE OF CONSULTATION: 05/22/2019 REASON FOR CONSULTATION: Ventricular fibrillation. HISTORY OF PRESENT ILLNESS: Mr. Lee Loving is a pleasant 78-year-old gentleman. He has a history of normal left ventricular systolic function with pulmonary hypertension. He sees a physician in [place] for the pulmonary hypertension. My understanding is that, that physician thinks that his pulmonary hypertension may be related to his sleep apnea which is being treated. His pulmonary artery pressures tend to raise in the 65 mm systolic range. The patient had a volvulus yesterday and required urgent repair. In the postoperative period, he was having pain. He did receive fentanyl intravenously. There was some thought that he may have had his respirations suppressed to some degree, but however, the patient then developed ventricular tachycardia, which deteriorated into polymorphic ventricular tachycardia, then ventricular fibrillation. He required defibrillation and chest compressions. He was maintained on amiodarone. PAST MEDICAL HISTORY: 1. He has a history of frequent PVCs. He did have a monitor showing 21,000 PVCs per day, but he is asymptomatic with that. 2. History of normal left ventricular function. 3. History of normal coronary arteries on catheterization done in January 2018. He had some calcium in external portion of his LAD, but the coronary angiogram was totally normal. His ejection fraction was 60%. PA pressure was 70/32 at that point with a wedge pressure of 18, indicating it what appeared to be pulmonary hypertension. MEDICATIONS: The patient had been on 1. Losartan. 2. Pravastatin. 3. Potassium. 4. Niacin. 5. Amlodipine. ALLERGIES: NONE KNOWN. SOCIAL HISTORY: No alcohol or tobacco. He is very active. PHYSICAL EXAMINATION: GENERAL: This is a pleasant elderly gentleman, in no distress. VITAL SIGNS: Blood pressure is low 109/58, pulse 80, it is regular with frequent PVCs. HEENT: Eyes, sclerae are nonicteric. Mouth, mucous membranes are moist. NECK: Supple. No lymphadenopathy. LUNGS: Clear. No wheezing, rales, or rhonchi. CARDIAC: Normal S1, normal S2. There is frequent premature contraction. No murmur, rub, or gallop. ABDOMEN: Soft, nontender. EXTREMITIES: No clubbing, cyanosis, or edema. LABORATORY DATA: Cardiac enzymes were negative last night. EKG did not show any ischemia. Potassium yesterday was 3.7, 3.2 this morning, but he has received additional potassium. ASSESSMENT: 1. History of pulmonary hypertension with normal left ventricular systolic function. 2. Ventricular tachycardia, which became polymorphic and deteriorated into ventricular fibrillation in the postoperative period. 3. Frequent premature ventricular contractions over 21,000 per day. 4. Left bundle-branch block pattern on EKG. PLAN: 1. He is on intravenous amiodarone, continue for now. 2. Continue to replete potassium. 3. Electrophysiologic consultation ? defibrillator implantation. 4. My partners will continue to see this weekend. Job ID: [id number]
--- NOTE | 2019-05-23 01:46 | CON ---
DATE OF CONSULTATION: 05/22/2019 HISTORY OF PRESENT ILLNESS: Lee Loving is a 78-year-old male, who apparently had an operative procedure yesterday with Dr. Pereyra for sigmoid volvulus. He did not require an ostomy. Apparently in the postanesthesia care unit, he had a cardiorespiratory arrest. It is not clear to me what triggered this event, but he was resuscitated. He did require chest compressions. He was extubated this morning. He had no complaints other than chest soreness, when I saw him. PAST MEDICAL HISTORY: 1. Remarkable for knee replacements. 2. History of sigmoid volvulus in the past, decompressed by Dr. Tanner. 3. History of an umbilical herniorrhaphy. 4. History of hypertension, which resolved with weight loss done with diet. 5. History of minimal coronary artery disease. 6. History of pulmonary hypertension. He has had a sleep evaluation wearing his BiPAP. It is unclear to me whether or not he was wearing BiPAP as he was waking up from surgery. REVIEW OF SYSTEMS: 10 point review of systems completed, otherwise unremarkable. PHYSICAL EXAMINATION: VITAL SIGNS: His heart rate is in the 70s, blood pressure 109/58, and respiratory rates in the 20s. HEAD AND NECK: Unremarkable. LUNGS: Clear. HEART: Regular rhythm. ABDOMEN: Bandaged. EXTREMITIES: Without clubbing, cyanosis, or edema. NEUROLOGIC: Grossly nonfocal. LABORATORY DATA: Labs have been reviewed. IMPRESSION: 1. Status post perioperative cardiorespiratory arrest. 2. Status post surgical resection of sigmoid volvulus with an end-to-end anastomosis. 3. Status post cardiopulmonary resuscitation with no neurological deficits, extubated quickly this morning. We will follow. TIME SPENT: This is a 70-minute consult with greater than 50% of the time spent on the unit coordinating care. Job ID: [id number] MTDD
[2019-05-23] MEDS: Potassium Chloride 20 MEQ in Lactated Ringer's 1,000 ML IV SCH ×3 (03:54→22:54)
[2019-05-23] MEDS: Ketorolac Tromethamine 30 MG/ML VIAL IVP SCH ×4 (05:51→23:06)
[2019-05-23 06:04] LABS: Anion Gap 15 mmol/L (10-20); BUN (Urea Nitrogen) 15 mg/dL (8.4-25.7); Calc. Creatinine Clearance 58 mL/min (70-130); Carbon Dioxide 20 mmol/L (23-31); Chloride 101 mmol/L (98-107); Estimated GFR-MDRD 43; Glucose 111 mg/dL (83-110); Sodium 132 mmol/L (136-145)
[2019-05-23 06:10] LABS: Troponin I 0.111 ng/mL (< 0.028)
[2019-05-23] MEDS: Budesonide 0.5 MG/2 ML NEB NEB SCH ×2 (08:01→18:21)
[2019-05-23] MEDS: Arformoterol 15 MCG/2 ML NEB NEB SCH ×2 (08:01→18:21)
[2019-05-23] MEDS: Aspirin 81 mg Enteric Coated Tablet PO SCH (09:03)
[2019-05-23] MEDS: Potassium Chloride 10 MEQ TAB PO SCH (09:03)
[2019-05-23] MEDS: Tamsulosin HCl 0.4 MG CAP PO SCH (09:04)
[2019-05-23] MEDS: Famotidine 20 MG TAB PO SCH ×3 (09:04→21:45)
--- NOTE | 2019-05-23 11:04 | PRG ---
DATE OF SERVICE: 05/23/2019 SUBJECTIVE: Mr. Loving is doing well today. He has had a good night in ICU. Cardiology is planning an AICD placement on Saturday for his tachyarrhythmias. The patient is tolerating his diet. The patient's Sandoval catheter was removed yesterday, but suffered urinary retention and a Sandoval catheter was replaced. Bladder scan was not performed. Plan is to start him on Flomax today. Remove his Sandoval tomorrow. Next, the patient was on full liquids. [facility] have advanced his diet. I was awaiting for that, but he has already had a regular diet before him and we will continue to allow that. He has not passed any flatus or stool. He has not had any nausea or vomiting. OBJECTIVE: VITAL SIGNS: Pulse 83, blood pressure 106/62, and respiratory rate 24. LUNGS: Clear to auscultation. CARDIAC: Regular rate and rhythm without murmur or gallop. ABDOMEN: Soft, obese, and nontender. Surgical wounds look good. Incisional VAC present. LABORATORY DATA: This morning, his white count is 9, hemoglobin 12.9. The patient's basic metabolic is normal. Sodium 132, potassium 4.0, creatinine 1.57, and GFR 43. ASSESSMENT AND PLAN: 1. Doing well after sigmoid volvulus. Advance diet as tolerated. Resume home medications. Cardiac medications per Dr. Salinas. 2. Sleep apnea. Continue BiPAP at bedtime. 3. Pulmonary hypertension. 4. Postoperative ventricular tachycardia, ventricular fibrillation, torsades, requiring CPR and defibrillation. He is sore, but no other sequelae noted. His troponins are trending downward. Cardiology, Dr. Salinas is following. Dr. Sharif is following. We would AICD plan for Saturday. When today, we will plan to move to [facility]. He has TKO IV fluids and amiodarone drip. Management per Dr. Salinas. Job ID: [id number]
[2019-05-23] MEDS: Amiodarone 450 MG, Admixture Fee 1 EACH in Dextrose 5% in Water 250 ML IVPB SCH (12:02)
--- NOTE | 2019-05-23 18:11 | PDOC.HOSPP ---
- Subjective Encounter Date: 05/23/19 Encounter Time: 18:00 Subjective: f/u s/p V-fib arrest post-op after volvulus resection. Feels better currently except for sore rib cage. Remains on Amiodarone gtt and planning for EP consult 05/25/19. - Objective Vital Signs & Weight: Vital Signs (12 hours) Temp Pulse Resp Pulse Ox 05/23/19 15:00 98.6 F 05/23/19 14:50 82 18 95 05/23/19 12:00 98.4 F 05/23/19 11:04 74 18 95 05/23/19 08:01 68 20 100 05/23/19 08:00 98.5 F 98 05/23/19 07:57 68 20 99 Weight Admit Weight 243 lb 6.245 oz Weight 238 lb Most Recent Monitor Data Heart Rate from ECG 96 NIBP 110/57 NIBP BP-Mean 74 Respiration from ECG 26 SpO2 93 I&O: 05/22/19 05/23/19 05/24/19 06:59 06:59 06:59 Intake Total 2659.9 3204 919 Output Total 610 460 260 Balance 2049.9 2744 659 Result Diagrams: 05/22/19 04:15 05/23/19 05:25 Additional Labs: Laboratory Tests 05/20/19 05/21/19 05/21/19 13:05 05:34 20:54 Hgb 14.8 12.7 L 14.5 Sodium Potassium Creatinine Troponin I 05/21/19 05/22/19 05/22/19 20:54 04:15 18:12 Hgb Sodium 137 Potassium 3.2 L Creatinine 1.14 Troponin I 0.038 H 0.128 H 05/23/19 05:25 Hgb Sodium Potassium Creatinine Troponin I 0.111 H Radiology Reviewed by me: Yes (Echo - EF 60-65%, severe pulm HTN, mod-severe LAE ) EKG Reviewed by me: Yes (Tele - SR with PVC's) Hospitalist ROS - Medication Medications: Active Medications Generic Name Dose Route Start Last Admin Trade Name Freq PRN Reason Stop Dose Admin Acetaminophen 1,000 mg 05/22/19 09:35 05/22/19 20:18 Tylenol PO 1,000 mg Q6H PRN Administration Moderate to Severe Pain (6-10) Albuterol/Ipratropium 3 ml 05/21/19 22:30 05/23/19 14:50 Duoneb NEB 3 ml [id number] TATYANA Administration Arformoterol Tartrate 15 mcg 05/22/19 06:30 05/23/19 08:01 Brovana NEB 15 mcg BID-RT TATYANA Administration Aspirin 81 mg 05/23/19 09:00 05/23/19 09:03 Ecotrin PO 81 mg DAILY TATYANA Administration Budesonide 0.5 mg 05/22/19 06:30 05/23/19 08:01 Pulmicort Neb Solution NEB 0.5 mg BID-RT TATYANA Administration Enoxaparin Sodium 40 mg 05/21/19 21:00 05/22/19 20:18 Lovenox SC 40 mg 2100 TATYANA Administration Famotidine 40 mg 05/22/19 21:00 05/23/19 09:06 Pepcid PO 40 mg BID TATYANA Administration Potassium Chloride 20 meq/ 1,010 mls @ 100 mls/hr 05/22/19 15:46 05/23/19 11: 37 Lactated Ringer's IV Not Given .Q10H6M TATYANA Amiodarone HCl 450 mg/ 259 mls @ 0 mls/hr 05/22/19 20:00 05/23/19 12:02 Miscellaneous Medication 1 IVPB 259 mls each/ Dextrose/Water INF TATYANA Administration Protocol As Directed Ketorolac Tromethamine 15 mg 05/21/19 18:00 05/23/19 11:38 Toradol IVP 05/26/19 18:01 15 mg Q6HR TATYANA Administration Losartan Potassium 25 mg 05/21/19 21:00 05/22/19 20:17 Cozaar PO 25 mg HS TATYANA Administration Niacin 1,500 mg 05/21/19 21:00 05/22/19 20:17 Niacin PO 1,500 mg HS TATYANA Administration Potassium Chloride 10 meq 05/23/19 08:00 05/23/19 09:03 Klor-Con 10 PO 10 meq QAM-WM TATYANA Administration Sodium Chloride 10 ml 05/21/19 09:00 05/23/19 09:04 Flush - Normal Saline IVF 10 ml Q12HR TATYANA Administration Tamsulosin HCl 0.4 mg 05/23/19 09:00 05/23/19 09:04 Flomax PO 0.4 mg DAILY TATYANA Administration - Exam General Appearance: NAD, awake alert Eye: PERRL, anicteric sclera ENT: normocephalic atraumatic, no oropharyngeal lesions Neck: supple, symmetric, no JVD, no thyromegaly, no lymphadenopathy Heart: RRR, no murmur, no gallops, no rubs, normal peripheral pulses Respiratory: CTAB, no wheezes, no rales, no ronchi Gastrointestinal: soft, non-distended, normal bowel sounds, no palpable masses Gastrointestinal - other findings: post-surgical changes noted Extremities: no cyanosis, no edema Skin: normal turgor, no lesions Neurological: cranial nerve grossly intact, no new deficit Musculoskeletal: normal tone, normal strength Psychiatric: normal affect, A&O x 3 Hosp A/P (1) Cardiac arrest Code(s): I46.9 - CARDIAC ARREST, CAUSE UNSPECIFIED Status: Acute Plan: s/p arrest on current Amiodarone gtt, plan for EP evaluation on 05/25/19 (2) Sigmoid volvulus Status: Acute Plan: s/p resection (3) Acute kidney injury superimposed on CKD Code(s): N17.9 - ACUTE KIDNEY FAILURE, UNSPECIFIED; N18.9 - CHRONIC KIDNEY DISEASE, UNSPECIFIED Status: Acute Plan: Encourage increased po free-H2O intake, avoid nephrotoxic agents, serial creatinine (4) Hypertension Code(s): I10 - ESSENTIAL (PRIMARY) HYPERTENSION Status: Chronic Qualifiers: Hypertension type: essential hypertension Qualified Code(s): I10 - Essential (primary) hypertension Plan: Stable currently, serial monitoring, continue current regimen (5) Pulmonary HTN Code(s): I27.20 - PULMONARY HYPERTENSION, UNSPECIFIED Status: Chronic - Plan plan discussed w/ family, social worker aide, out of bed/ambulate, DVT proph w/SCDs Stable currently OOB with PT Pain control as clinically indicated Continue Amiodarone gtt EP evaluation on 05/25/19 AM lab: BMP
--- NOTE | 2019-05-23 21:23 | PRG ---
DATE OF SERVICE: 05/23/2019 SUBJECTIVE: Lee Loving did well overnight. He is in a bedside chair. He had no complaints. OBJECTIVE: VITAL SIGNS: He is afebrile, oximetry is 96% on room air, blood pressure 124/82, heart rate of 115, respiratory rate is 20. LUNGS: Clear. HEART: Regular rhythm. S1 and S2 normal. ABDOMEN: Soft and nontender. EXTREMITIES: Without edema. LABORATORY DATA: Sodium 132, potassium 4, chloride 101, bicarb 20, BUN 15, and creatinine 1.57, creatinine was 1.14 yesterday. Intake and output positive 2744. IMPRESSION: 1. Status post postoperative arrest ? Secondary to narcotics. 2. Status post resection of sigmoid volvulus. Overall, he appears to be stable. He could be moved out of Critical Care Unit. 3. He is tentatively on schedule for an EP evaluation on Saturday. Job ID: [id number]
[2019-05-23] MEDS: Enoxaparin Sodium 40 MG/0.4 ML SYRINGE SC SCH (21:44)
[2019-05-23] MEDS: Losartan 25 MG TAB PO SCH (21:44)
[2019-05-23] MEDS: Niacin 500 MG TAB PO SCH (21:44)
[2019-05-23] MEDS ORDERED: Chloraseptic Spray 180 ml Bottle PO PRN (22:39)
[2019-05-23] MEDS: Cepastat Lozenges 1 LOZ PO PRN (23:07)
[2019-05-24] MEDS: Amiodarone 450 MG, Admixture Fee 1 EACH in Dextrose 5% in Water 250 ML IVPB SCH ×2 (03:11→20:48)
[2019-05-24 03:54] LABS: Anion Gap 12 mmol/L (10-20); BUN (Urea Nitrogen) 21 mg/dL (8.4-25.7); Calc. Creatinine Clearance 67 mL/min (70-130); Calcium 8.9 mg/dL (7.8-10.44); Carbon Dioxide 22 mmol/L (23-31); Chloride 97 mmol/L (98-107); Estimated GFR-MDRD 51; Glucose 114 mg/dL (83-110); Sodium 127 mmol/L (136-145)
[2019-05-24] MEDS: Cepastat Lozenges 1 LOZ PO PRN (06:32)
[2019-05-24] MEDS: Ketorolac Tromethamine 30 MG/ML VIAL IVP SCH ×3 (06:32→17:59)
[2019-05-24] MEDS: Arformoterol 15 MCG/2 ML NEB NEB SCH ×2 (07:43→18:47)
[2019-05-24] MEDS: Budesonide 0.5 MG/2 ML NEB NEB SCH ×2 (07:43→18:47)
[2019-05-24] MEDS: Potassium Chloride 20 MEQ in Lactated Ringer's 1,000 ML IV SCH ×2 (10:05→17:51)
[2019-05-24] MEDS: Tamsulosin HCl 0.4 MG CAP PO SCH (10:06)
[2019-05-24] MEDS: Aspirin 81 mg Enteric Coated Tablet PO SCH (10:06)
[2019-05-24] MEDS: Famotidine 20 MG TAB PO SCH ×2 (10:06→20:50)
[2019-05-24] MEDS: Potassium Chloride 10 MEQ TAB PO SCH (10:06)
[2019-05-24] MEDS: guaiFENesin ER 600 MG TAB PO SCH ×2 (10:18→20:50)
--- NOTE | 2019-05-24 17:52 | PRG ---
DATE OF SERVICE: 05/24/2019 SUBJECTIVE: Lee Loving is doing well today. Although he has some decreased appetite, his abdomen is slightly distended. He has not had any nausea or vomiting. He has had bowel movements. He has had numerous visitors and he is tired. OBJECTIVE: VITAL SIGNS: Blood pressure 121/60, heart rate 80. HEAD, EYES, EARS, NOSE, AND THROAT: Unremarkable. LUNGS: Clear to auscultation. CARDIAC: Regular rhythm. No murmur or gallop. ABDOMEN: Soft. Incisional wound VAC in place. EXTREMITIES: Unremarkable. ASSESSMENT: 1. Doing well, status post resection of sigmoid volvulus, status post postoperative arrhythmias. 2. Ventricular tachycardia and torsades requiring defibrillation and cardiopulmonary resuscitation. 3. Prior history of premature ventricular contractions. PLAN: Plan is for EP study, likely AICD. Overall, the patient is doing well. He has been up in a chair and ambulates in the room. No labs today except for BMP. Sodium 127, potassium 4, creatinine 1.36, BUN 21. Job ID: [id number]
--- NOTE | 2019-05-24 17:56 | PRG ---
DATE OF SERVICE: 05/24/2019 SUBJECTIVE: He is in no distress. He has no complaints other than feeling little congested in his chest. I switched him to EzPAP nebulized treatments. OBJECTIVE: VITAL SIGNS: Heart rate is in 70s to 90s. He is in atrial fibrillation. Blood pressure is 122/60, respiratory rate 17, oximetry is in the low 90s. LUNGS: Remarkable for coarse equal breath sounds. HEART: Regular rhythm. ABDOMEN: Soft. EXTREMITIES: Without asymmetry, had a bowel movement today. IMPRESSION: 1. Status post surgical treatment of sigmoid volvulus with an end-to-end anastomosis. 2. Retained secretions, not surprising after abdominal surgery. 3. Sternal tenderness after CPR related to arrest in postanesthesia care unit. 4. Ventricular tachycardia, to be evaluated by Electrophysiology, also with atrial fibrillation. 5. History of pulmonary hypertension, worked up and treated in [place]. We will follow the other physicians caring for him. He appears to be stable at this time. Job ID: [id number]
--- NOTE | 2019-05-24 19:00 | PDOC.HOSPP ---
- Subjective Encounter Date: 05/24/19 Encounter Time: 18:45 Subjective: f/u for V-fib s/p arrest with ROSC. Nsg reported hypotension this am and Amiodarone was held and pt received IV NS bolus. BP stabilized per nursing. Pt feels ok. - Objective Vital Signs & Weight: Vital Signs (12 hours) Temp Pulse Resp Pulse Ox 05/24/19 18:47 87 21 H 96 05/24/19 15:02 99.0 F 05/24/19 14:56 66 24 H 98 05/24/19 10:54 87 22 H 95 05/24/19 10:41 99.0 F 05/24/19 07:53 90 L 05/24/19 07:43 85 16 96 05/24/19 07:39 85 16 96 05/24/19 07:08 97.3 F L Weight Admit Weight 243 lb 6.245 oz Weight 238 lb Most Recent Monitor Data Heart Rate from ECG 80 NIBP 121/86 NIBP BP-Mean 113 Respiration from ECG 19 SpO2 94 I&O: 05/23/19 05/24/19 05/25/19 06:59 06:59 06:59 Intake Total 3204 1302 3475 Output Total 460 415 925 Balance 9464 364 2670 Result Diagrams: 05/22/19 04:15 05/24/19 03:21 Additional Labs: Laboratory Tests 05/20/19 05/21/19 05/21/19 13:05 05:34 20:54 Hgb 14.8 12.7 L 14.5 Sodium Potassium Creatinine Troponin I 05/21/19 05/22/19 05/22/19 20:54 04:15 18:12 Hgb Sodium 137 Potassium 3.2 L Creatinine 1.14 Troponin I 0.038 H 0.128 H 05/23/19 05/23/19 05:25 05:25 Hgb Sodium 132 L Potassium Creatinine 1.57 H Troponin I 0.111 H EKG Reviewed by me: Yes (Tele - SR with PVC's) Hospitalist ROS - Medication Medications: Active Medications Generic Name Dose Route Start Last Admin Trade Name Freq PRN Reason Stop Dose Admin Acetaminophen 1,000 mg 05/22/19 09:35 05/22/19 20:18 Tylenol PO 1,000 mg Q6H PRN Administration Moderate to Severe Pain (6-10) Albuterol/Ipratropium 3 ml 05/24/19 11:00 05/24/19 18:47 Duoneb EZPAP 3 ml [id number] TATYANA Administration Arformoterol Tartrate 15 mcg 05/22/19 06:30 05/24/19 18:47 Brovana NEB 15 mcg BID-RT TATYANA Administration Aspirin 81 mg 05/23/19 09:00 05/24/19 10:06 Ecotrin PO 81 mg DAILY TATYANA Administration Budesonide 0.5 mg 05/22/19 06:30 05/24/19 18:47 Pulmicort Neb Solution NEB 0.5 mg BID-RT TATYANA Administration Enoxaparin Sodium 40 mg 05/21/19 21:00 05/23/19 21:44 Lovenox SC 40 mg 2100 TATYANA Administration Famotidine 40 mg 05/22/19 21:00 05/24/19 10:06 Pepcid PO 40 mg BID TATYANA Administration Guaifenesin 600 mg 05/24/19 21:00 05/24/19 10:18 Mucinex PO 600 mg Q12HR TATYANA Administration Potassium Chloride 20 meq/ 1,010 mls @ 100 mls/hr 05/22/19 15:46 05/24/19 17: 51 Lactated Ringer's IV 05/25/19 05:59 1,010 mls .Q10H6M TATYANA Administration Amiodarone HCl 450 mg/ 259 mls @ 0 mls/hr 05/22/19 20:00 05/24/19 03:11 Miscellaneous Medication 1 IVPB 259 mls each/ Dextrose/Water INF TATYANA Administration Protocol As Directed Ketorolac Tromethamine 15 mg 05/21/19 18:00 05/24/19 17:59 Toradol IVP 05/26/19 18:01 15 mg Q6HR TATYANA Administration Losartan Potassium 25 mg 05/21/19 21:00 05/23/19 21:44 Cozaar PO 25 mg HS TATYANA Administration Niacin 1,500 mg 05/21/19 21:00 05/23/19 21:44 Niacin PO 1,500 mg HS TATYANA Administration Phenol 5 ml 05/23/19 22:39 05/24/19 10:19 Chloraseptic [place] 180 Ml Bot PO 1 spray PRN PRN Administration Sore Throat Potassium Chloride 10 meq 05/23/19 08:00 05/24/19 10:06 Klor-Con 10 PO 10 meq QAM-WM TATYANA Administration Sodium Chloride 10 ml 05/21/19 09:00 05/24/19 10:12 Flush - Normal Saline IVF 10 ml Q12HR TATYANA Administration Tamsulosin HCl 0.4 mg 05/23/19 09:00 05/24/19 10:06 Flomax PO 0.4 mg DAILY TATYANA Administration Throat Lozenges 1 brigitte 05/23/19 22:39 05/24/19 06:32 Cepastat Lozenges PO 1 brigitte Q2H PRN Administration Sore Throat Tramadol HCl 50 mg 05/22/19 09:35 05/24/19 10:06 Ultram PO 50 mg Q4H PRN Administration Pain - Exam General Appearance: NAD, awake alert Eye: PERRL, anicteric sclera ENT: normocephalic atraumatic, no oropharyngeal lesions Neck: supple, symmetric, no JVD, no thyromegaly Heart: RRR, no gallops, no rubs, normal peripheral pulses Respiratory: CTAB, no wheezes, no rales, no ronchi, normal chest expansion Gastrointestinal: soft, non-tender, normal bowel sounds, no palpable masses Extremities: no cyanosis, no edema Skin: normal turgor, no lesions Neurological: cranial nerve grossly intact, no new deficit Musculoskeletal: normal tone, normal strength Psychiatric: normal affect, A&O x 3 Hosp A/P (1) Cardiac arrest Code(s): I46.9 - CARDIAC ARREST, CAUSE UNSPECIFIED Status: Acute Plan: s/p V-fib arrest with CPR and ROSC, continue Amiodarone gtt, plan for AICD in am (2) Sigmoid volvulus Status: Acute Plan: s/p laparotomy with sigmoid colectomy and anastamosis POD#3, stable (3) Acute kidney injury superimposed on CKD Code(s): N17.9 - ACUTE KIDNEY FAILURE, UNSPECIFIED; N18.9 - CHRONIC KIDNEY DISEASE, UNSPECIFIED Status: Acute Plan: Improved, continue low-volume IVF's (4) Hypertension Code(s): I10 - ESSENTIAL (PRIMARY) HYPERTENSION Status: Chronic Qualifiers: Hypertension type: essential hypertension Qualified Code(s): I10 - Essential (primary) hypertension (5) Pulmonary HTN Code(s): I27.20 - PULMONARY HYPERTENSION, UNSPECIFIED Status: Chronic - Plan PT/OT, school social worker, 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
[2019-05-24] MEDS: Enoxaparin Sodium 40 MG/0.4 ML SYRINGE SC SCH (20:49)
[2019-05-24] MEDS: Niacin 500 MG TAB PO SCH (20:49)
[2019-05-24] MEDS: Losartan 25 MG TAB PO SCH (21:42)
[2019-05-25] MEDS: Ketorolac Tromethamine 30 MG/ML VIAL IVP SCH ×5 (00:26→23:37)
--- NOTE | 2019-05-25 00:45 | PRG ---
DATE OF SERVICE: 05/24/2019 HISTORY OF PRESENT ILLNESS: This is a very pleasant 78-year-old gentleman, who had a VFib after repair of a volvulus. He still remains on amiodarone and will be seen by Electrophysiology tomorrow most likely for an AICD implant. His echocardiogram showed a normal ejection fraction. He does have sleep apnea and history of pulmonary hypertension. He had normal coronaries by cardiac catheterization in January of 2018. At this time, he is doing relatively well. He continues to have frequent multifocal PVCs. PHYSICAL EXAMINATION: VITAL SIGNS: Stable today. Blood pressure is 121/60, heart rate is anywhere between 70 to 90. He also has underlying atrial fibrillation. His O2 saturations in the 89% to 90% range, respiratory rate is 18. HEENT: Unremarkable. CHEST: Clear to auscultation. CARDIOVASCULAR: Reveals an irregular rhythm with frequent ectopy. ABDOMEN: Soft and obese. Positive bowel sounds are present. EXTREMITIES: Show no significant clubbing or cyanosis. Pedal pulses are present. SKIN: Warm and dry. LABORATORY DATA: Shows the sodium is low at 127, chloride was 97, BUN was 21, creatinine 1.36. Blood sugar was 114. MEDICATIONS: 1. Include IV amiodarone as well as nebulizer treatments. 2. He is on guaifenesin. 3. Other nebulizer treatments of Brovana. 4. He has taken 81 mg of aspirin. 5. He is on Lovenox as a DVT prophylaxis. 6. He is on Pepcid. 7. Cozaar. 8. Niacin. 9. Potassium as needed. 10. Flomax. 11. Ipratropium/albuterol inhalers and other p.r.n. medications. IMPRESSION: 1. Status post ventricular fibrillation. He will be evaluated by the EP physician tomorrow for probable AICD implant. 2. Pulmonary hypertension. He does not have any significant edema at this time and seems to be breathing fine without any significant problems. 3. History of sleep apnea. I am uncertain if he has a CPAP mask at this time or not. 4. Status post volvulus repair on 05/21. His bowel movements remained stable. The plan is for AICD tomorrow most likely. Job ID: [id number]
[2019-05-25] MEDS: Potassium Chloride 20 MEQ in Lactated Ringer's 1,000 ML IV SCH (04:00)
[2019-05-25] MEDS ORDERED: Sodium Chloride 0.9% 1,000 ML IV SCH (06:00)
[2019-05-25 06:02] LABS: Anion Gap 11 mmol/L (10-20); BUN (Urea Nitrogen) 14 mg/dL (8.4-25.7); Calc. Creatinine Clearance 86 mL/min (70-130); Carbon Dioxide 23 mmol/L (23-31); Chloride 99 mmol/L (98-107); Estimated GFR-MDRD 67; Glucose 110 mg/dL (83-110); Potassium 3.7 mmol/L (3.5-5.1); Sodium 129 mmol/L (136-145)
[2019-05-25] MEDS: Arformoterol 15 MCG/2 ML NEB NEB SCH ×2 (07:55→19:09)
[2019-05-25] MEDS: Budesonide 0.5 MG/2 ML NEB NEB SCH ×2 (07:55→19:09)
[2019-05-25] MEDS ORDERED: Ketamine 50 MG/ML (10ML VIAL) ONE (08:41)
[2019-05-25] MEDS ORDERED: Midazolam HCl 2 mg/2 ml Vial ONE (08:41)
[2019-05-25] MEDS ORDERED: Fentanyl 100 MCG/2 ML VIAL ONE (08:41)
[2019-05-25] MEDS ORDERED: Phenylephrine HCL 10 MG/ML VIAL ONE (08:42)
[2019-05-25] MEDS ORDERED: Lidocaine 1% (PF) 30 ML VIAL ONE (08:46)
[2019-05-25] MEDS ORDERED: Milrinone 10 MG/10 ML VIAL ONE (09:33)
[2019-05-25] MEDS ORDERED: Propofol 500 MG/50 ML VIAL ONE (09:33)
[2019-05-25] MEDS ORDERED: Promethazine HCl 25 MG/ML VIAL IM PRN (11:03)
[2019-05-25] MEDS ORDERED: Ondansetron HCl/PF 4 MG/2 ML Vial IVP PRN (11:03)
[2019-05-25] MEDS ORDERED: Promethazine HCl 25 MG/ML VIAL SLOW IVP PRN (11:03)
--- NOTE | 2019-05-25 12:12 | RAD ---
XR Chest 1 View Portable History: AICD placement Comparison: Chest radiograph May 22, 2019 Findings: Interval placement AICD with leads projecting over the right atrium and right ventricle. Ce ntral venous catheter is in place with tip projecting over the mid SVC. Heart size is enlarged. Bibasilar opacities are similar. Impression: Uncomplicated placement of a 2-lead AICD.
--- NOTE | 2019-05-25 14:01 | PRG ---
DATE OF SERVICE: 05/25/2019 SUBJECTIVE: Lee Loving is doing well today. He had an AICD placed right subclavian today. He is not having any nausea and vomiting. His appetite was poor yesterday, but he is passing some flatus and stool. OBJECTIVE: VITAL SIGNS: Blood pressure 117/70, heart rate 77, and respiratory rate 21. LUNGS: Clear to auscultation. CARDIAC: Regular rate and rhythm without murmur or gallop. ABDOMEN: Mildly distended, slightly tympanitic, but soft and nontender. Surgical wounds well healed infraumbilical. Incisional VAC has been removed. Wound left open. LABORATORY DATA: Laboratories revealed normal basic met today. At this point, the patient is doing well. He probably be observed today overnight and from a surgical standpoint, he could be discharged home Saturday. Diet and activity as tolerated. Avoid lifting over 25 to 30 pounds for 4 weeks. Follow up in my office in 2 to 3 weeks. He is having very little pain and can take [id number] Tylenol and Advil for any discomfort. He has not used any Ultram or any other analgesics. The only complaint he has is pain from his chest from his CPR defibrillation episode. Job ID: [id number]
[2019-05-25] MEDS: Famotidine 20 MG TAB PO SCH ×2 (14:27→20:31)
[2019-05-25] MEDS: Tamsulosin HCl 0.4 MG CAP PO SCH (14:27)
[2019-05-25] MEDS: Aspirin 81 mg Enteric Coated Tablet PO SCH (14:27)
[2019-05-25] MEDS: guaiFENesin ER 600 MG TAB PO SCH ×2 (14:27→20:31)
[2019-05-25] MEDS: Potassium Chloride 10 MEQ TAB PO SCH (14:28)
--- NOTE | 2019-05-25 15:09 | PDOC.HOSPP ---
- Subjective Encounter Date: 05/25/19 Encounter Time: 15:05 Subjective: f/u s/p AICD after V-fib arrest with ROSC. Feels ok overall. Some chest soreness. No SOB, fever. - Objective Vital Signs & Weight: Vital Signs (12 hours) Temp Pulse Resp Pulse Ox 05/25/19 08:00 96 05/25/19 07:55 99 05/25/19 07:51 75 18 99 05/25/19 07:43 97.7 F 05/25/19 04:00 98.4 F Weight Admit Weight 238 lb Weight 238 lb Most Recent Monitor Data Heart Rate from ECG 89 NIBP 131/77 NIBP BP-Mean 95 Respiration from ECG 19 SpO2 99 I&O: 05/24/19 05/25/19 05/26/19 06:59 06:59 06:59 Intake Total 1302 4915 Output Total 415 1775 Balance 887 3140 Result Diagrams: 05/22/19 04:15 05/25/19 05:30 Additional Labs: Laboratory Tests 05/20/19 05/21/19 05/21/19 13:05 05:34 20:54 Hgb 14.8 12.7 L 14.5 Sodium Potassium Creatinine Troponin I 05/21/19 05/22/19 05/22/19 20:54 04:15 18:12 Hgb Sodium 137 Potassium 3.2 L Creatinine 1.14 Troponin I 0.038 H 0.128 H 05/23/19 05/23/19 05/24/19 05:25 05:25 03:21 Hgb Sodium 132 L 127 L Potassium Creatinine 1.57 H 1.36 H Troponin I 0.111 H Radiology Reviewed by me: Yes (PCXR - bibasilar opacities, AICD in place) EKG Reviewed by me: Yes (Tele - SR with PVC's) Hospitalist ROS - Medication Medications: Active Medications Generic Name Dose Route Start Last Admin Trade Name Freq PRN Reason Stop Dose Admin Acetaminophen 1,000 mg 05/22/19 09:35 05/22/19 20:18 Tylenol PO 1,000 mg Q6H PRN Administration Moderate to Severe Pain (6-10) Albuterol/Ipratropium 3 ml 05/24/19 11:00 05/25/19 10:44 Duoneb EZPAP Not Given [id number] TATYANA Arformoterol Tartrate 15 mcg 05/22/19 06:30 05/25/19 07:55 Brovana NEB 15 mcg BID-RT TATYANA Administration Aspirin 81 mg 05/23/19 09:00 05/25/19 14:27 Ecotrin PO 81 mg DAILY TATYANA Administration Budesonide 0.5 mg 05/22/19 06:30 05/25/19 07:55 Pulmicort Neb Solution NEB 0.5 mg BID-RT TATYANA Administration Enoxaparin Sodium 40 mg 05/21/19 21:00 05/24/19 20:49 Lovenox SC 40 mg 2100 TATYANA Administration Famotidine 40 mg 05/22/19 21:00 05/25/19 14:27 Pepcid PO 40 mg BID TATYANA Administration Guaifenesin 600 mg 05/24/19 21:00 05/25/19 14:27 Mucinex PO 600 mg Q12HR TATYANA Administration Amiodarone HCl 450 mg/ 259 mls @ 0 mls/hr 05/22/19 20:00 05/24/19 20:48 Miscellaneous Medication 1 IVPB 259 mls each/ Dextrose/Water INF TATYANA Administration Protocol As Directed Sodium Chloride 1,000 mls @ 100 mls/hr 05/25/19 06:00 05/25/19 06:28 Normal Saline 0.9% IV 1,000 mls .Q10H TATYANA Administration Ketorolac Tromethamine 15 mg 05/21/19 18:00 05/25/19 14:27 Toradol IVP 05/26/19 18:01 15 mg Q6HR TATYANA Administration Losartan Potassium 25 mg 05/21/19 21:00 05/24/19 21:42 Cozaar PO 25 mg HS TATYANA Administration Niacin 1,500 mg 05/21/19 21:00 05/24/19 20:49 Niacin PO 1,500 mg HS TATYAAN Administration Phenol 5 ml 05/23/19 22:39 05/24/19 10:19 Chloraseptic [place] 180 Ml Bot PO 1 spray PRN PRN Administration Sore Throat Potassium Chloride 10 meq 05/23/19 08:00 05/25/19 14:28 Klor-Con 10 PO 10 meq QAM-WM TATYANA Administration Sodium Chloride 10 ml 05/21/19 09:00 05/25/19 14:28 Flush - Normal Saline IVF 10 ml Q12HR TATYANA Administration Tamsulosin HCl 0.4 mg 05/23/19 09:00 05/25/19 14:27 Flomax PO 0.4 mg DAILY TATYANA Administration Throat Lozenges 1 brigitte 05/23/19 22:39 05/24/19 06:32 Cepastat Lozenges PO 1 brigitte Q2H PRN Administration Sore Throat Tramadol HCl 50 mg 05/22/19 09:35 05/24/19 10:06 Ultram PO 50 mg Q4H PRN Administration Pain - Exam General Appearance: NAD, awake alert Eye: PERRL, anicteric sclera ENT: normocephalic atraumatic, no oropharyngeal lesions Neck: supple, symmetric, no JVD, no thyromegaly Heart: RRR, no gallops, no rubs, normal peripheral pulses Respiratory - other findings: diminished in bases, + coarse sounds Gastrointestinal: soft, non-tender, normal bowel sounds, no palpable masses Gastrointestinal - other findings: surgical wound noted open Extremities: no cyanosis Skin: normal turgor, no lesions Neurological: cranial nerve grossly intact, no new deficit Musculoskeletal: normal tone, normal strength Psychiatric: normal affect, A&O x 3 Hosp A/P (1) Cardiac arrest Code(s): I46.9 - CARDIAC ARREST, CAUSE UNSPECIFIED Status: Acute Plan: s/p AICD placement 05/25/19, continue telemetry monitoring, Amiodarone gtt (2) Sigmoid volvulus Status: Acute Plan: s/p laparotomy with sigmoid resection with primary anastamosis POD #4 (3) Acute kidney injury superimposed on CKD Code(s): N17.9 - ACUTE KIDNEY FAILURE, UNSPECIFIED; N18.9 - CHRONIC KIDNEY DISEASE, UNSPECIFIED Status: Acute Plan: Resolving, decrease IVF's 50ml/h (4) Hypertension Code(s): I10 - ESSENTIAL (PRIMARY) HYPERTENSION Status: Chronic Qualifiers: Hypertension type: essential hypertension Qualified Code(s): I10 - Essential (primary) hypertension (5) Pulmonary HTN Code(s): I27.20 - PULMONARY HYPERTENSION, UNSPECIFIED Status: Chronic - Plan plan discussed w/ family, PT/OT, social media intern, respiratory therapy, out of bed/ambulate, DVT proph w/SCDs Stable currently OOB with PT Pain control as clinically indicated Continue Amiodarone gtt AICD placed 05/25/19 Decrease IVF's 50ml/h AM lab: BMP Likely home in 24h
[2019-05-25] MEDS ORDERED: PROPOFOL 200 MG/20 ML VIAL ONE (15:37)
[2019-05-25] MEDS ORDERED: Furosemide 20 MG/2 ML VIAL SLOW IVP SCH (15:45)
[2019-05-25] MEDS: Sodium Chloride 0.9% 1,000 ML IV SCH (16:33)
[2019-05-25] MEDS: Losartan 25 MG TAB PO SCH (20:31)
[2019-05-25] MEDS: Enoxaparin Sodium 40 MG/0.4 ML SYRINGE SC SCH (20:31)
[2019-05-25] MEDS: Niacin 500 MG TAB PO SCH (20:31)
[2019-05-26] MEDS ORDERED: Acetaminophen/Codeine 30-300mg Tablet PO PRN (02:45)
[2019-05-26 04:11] LABS: Anion Gap 11 mmol/L (10-20); BUN (Urea Nitrogen) 10 mg/dL (8.4-25.7); Calc. Creatinine Clearance 86 mL/min (70-130); Calcium 8.6 mg/dL (7.8-10.44); Carbon Dioxide 23 mmol/L (23-31); Chloride 100 mmol/L (98-107); Estimated GFR-MDRD 67; Glucose 103 mg/dL (83-110); Potassium 3.5 mmol/L (3.5-5.1); Sodium 130 mmol/L (136-145)
[2019-05-26] MEDS: Ketorolac Tromethamine 30 MG/ML VIAL IVP SCH ×3 (05:36→17:15)
[2019-05-26] MEDS: Budesonide 0.5 MG/2 ML NEB NEB SCH ×2 (07:05→18:37)
[2019-05-26] MEDS: Arformoterol 15 MCG/2 ML NEB NEB SCH ×2 (07:06→18:37)
--- NOTE | 2019-05-26 08:32 | CON ---
DATE OF CONSULTATION: 05/25/2019 HISTORY OF PRESENT ILLNESS: I am seeing Mr. 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 His problems are from, 1. Episode of torsade arrest on 05/21/2019. a. Ventricular fibrillation/torsade like rhythm, requiring full ACLS and multiple defibrillation shocks. 2. Frequent PVCs and episodes of bradycardia with compensatory pauses. 3. Current admission with sigmoid volvulus, requiring colectomy. 4. History of pulmonary hypertension with preserved LVEF with no significant coronary artery disease. a. Left heart catheterization in January 2018 showed no obstructions, but calcium in external portion of LAD, LVEF 60%, pulmonary pressure 70/32 Hgmm. b. 2D echo from 05/22/2019 reveals LVEF 60% to 65%, moderate to severely enlarged left atrium, severely elevated pulmonary pressures with mild TR only. 5. History of severe pulmonary hypertension, on CPAP. 6. Hypertension. ALLERGIES: NONE NOTED. MEDICATIONS: At home included; 1. Perforomist. 2. Budesonide. 3. Spironolactone. 4. Pravastatin. 5. Potassium. 6. Pepcid. 7. Niacin. 8. Esomeprazole. 9. Losartan. 10. Lasix. 11. Fish oil supplements. 12. Calcitriol. 13. Amlodipine 10 mg a day. 14. Aspirin 81 daily. Medications currently also include, 1. Hydralazine. 2. Toradol. 3. Ondansetron . 4. Lorazepam. 5. Morphine. 6. Brovana. 7. Budesonide. 8. Tylenol. 9. Amiodarone was initiated during the code. 10. Cepastat. 11. Ipratropium. 12. . 13. Ibuprofen. 14. Tamsulosin. SUBJECTIVE: Mr. Loving is currently doing well. He came in with lower abdominal discomfort, found to have a sigmoid volvulus, which was decompressed endoscopically, eventually required a colectomy by Dr. Pereyra on the . The procedure went well. Postoperative analgesia issues occurred. He did develop sudden ventricular fibrillation arrest. The EKGs were suggestive of torsade like rhythm. He has received full ACLS, multiple defibrillation shocks. Eventually, amiodarone was also administered and epinephrine. He stabilized his rhythm after that and he remained transiently intubated. Now over the weekend, he stabilized. He has no current issues. No stroke-like symptoms. No neurological deficits and rest of 12-point review of systems otherwise unremarkable. PAST MEDICAL HISTORY: As above. The patient has history of morbid obesity with about 30-pound weight loss, intentional. He has history of restrictive lung disease, pulmonary hypertension related to that. SOCIAL HISTORY: The patient is . is at bedside. Denies smoking, EtOH, or drug abuse. FAMILY HISTORY: He was adopted as a 1-year-old. OBJECTIVE: VITAL SIGNS: Blood pressure is 120/69, heart rate 86, respiratory rate 17, and temperature 97.7 degrees Fahrenheit. GENERAL: Alert and oriented man with elevated BMI, in no apparent distress. NECK: Supple. Jugular veins not distended. CHEST: Coarse without crackles. HEART: Sounds are regular to rate and rhythm. No murmur or gallop. ABDOMEN: Benign. Bowel sounds positive. EXTREMITIES: Lower extremities without edema, clubbing, or cyanosis. NEUROLOGIC: The patient is nonfocal. MUSCULOSKELETAL: Without joint swelling or deformity. SKIN: Without rash. DATABASE: Lab data reviewed. White blood cell count today 9.2, hemoglobin 12.9 , platelet count is 170. hemoglobin 12.7 Blood gas most recently on 05/22 at 6: 30 a.m. reveals pH of 7.39, pCO2 of 37. During the code, pH was 7.2, pCO2 of 60. Sodium most recently 129, potassium 3.7, BUN is 14, and creatinine 1.06. On the day of the code, potassium was 3.7 and 3.2 at 4 p.m. postsurgery. Calcium levels were 9 at 4:00 p.m. Troponin I 0.038, after code 0.128 and 0.111. The EKG is reviewed revealing sinus rhythm, left bundle-branch block pattern, frequent PVCs, which are right bundle, left axis in morphology. The QTc on the EKG on 05/21 postsurgery is 490 msec. The baseline EKG QTc is 460 msec, again left bundle-branch block pattern, also PVCs, right bundle, inferior axis in morphology are seen. The rhythm strips during the code do reveal polymorphic ventricular tachycardia, and also stretches of monomorphic VT are seen. Multiple defibrillation shocks were delivered with no clear termination during some of these are seen. ASSESSMENT AND PLAN: Mr. Loving is a pleasant 78-year-old man with prior history of pulmonary hypertension, no significant coronary artery disease and preserved LV systolic function. He was admitted with a sigmoid volvulus, eventually requiring surgery. Postop, he did develop a torsade-like ventricular arrhythmia requiring ACLS, defibrillations, Epinephrine and amiodarone. He had minimal potassium decrease only. He does have significant burden of premature ventricular contractions and post premature ventricular contraction pauses, which could have made him more prone to danielle-dependent torsade. Since resuscitation Saturday he has recovered well, but still has significant premature ventricular contraction burden, although improved with the IV amiodarone as well. We discussed the findings. Although he was postoperative with minor electrolyte changes, adding that by itself would not clearly explain his torsade-like ventricular arrhythmia. At this point, I do not see clear reversible factors, although had received anesthesia before, but that seems to have not impacted him significantly. Minor electrolyte changes noted prior to surgery, also likely not to recur in the future. I am concerned about pulmonary hypertension longstanding and possible RV hypertrophy associated with this and also the significant PVC burden , which could predispose him in long-short sequences, which is often times found initiating torsade-like arrhythmias. Overall, I think it would be reasonable to consider proceeding with an ICD implantation to prevent future episodes. This could also help him stabilizing rhythm if atrial lead is used to avoid excessive long-short sequences. He already has a left subclavian central line in place. Therefore, right-sided subclavian approach will be used to avoid superinfection. We discussed the rationale, alternatives, risk, and benefits of the procedure. He understands the chance of infection, bleeding, pneumothorax, tamponade, lead dislodgement, and recalls. He is willing to proceed. We will schedule him at a near date. We also discussed the issues with his ICD lead being on the right side in the future may need to limit gun use on that side. He agrees to proceed on the right side to avoid infection from the left previously placed central line. For now, we will continue amiodarone, which likely could be considered weaned after the ICD is implanted to avoid excessive QT prolongation. We will schedule the ICD implant as soon as feasible. Job ID: [id number] [facility]
[2019-05-26] MEDS: Tamsulosin HCl 0.4 MG CAP PO SCH (09:12)
[2019-05-26] MEDS: Aspirin 81 mg Enteric Coated Tablet PO SCH (09:12)
[2019-05-26] MEDS: Cephalexin 250 MG CAP PO SCH ×4 (09:12→20:19)
[2019-05-26] MEDS: Potassium Chloride 10 MEQ TAB PO SCH (09:12)
[2019-05-26] MEDS: guaiFENesin ER 600 MG TAB PO SCH ×2 (09:13→20:19)
[2019-05-26] MEDS: Famotidine 20 MG TAB PO SCH ×2 (09:13→20:19)
--- NOTE | 2019-05-26 09:44 | PRG ---
DATE OF SERVICE: 05/26/2019 SUBJECTIVE: Mr. Loving is doing well after defibrillator implantation. OBJECTIVE: VITAL SIGNS: His blood pressure is in the 80s systolic this morning. He is asymptomatic. He says the blood pressure tends to drop after takes losartan. LUNGS: Clear. CARDIAC: Normal S1, normal S2. Still has frequent PVCs. ABDOMEN: Soft and nontender. EXTREMITIES: There is no edema. ASSESSMENT: 1. Status post emergency abdominal surgery. 2. Pulmonary hypertension. 3. Ventricular arrhythmias, status post defibrillator implantation. PLAN: 1. Continue to replete potassium. Potassium is 3.5. 2. We will stop losartan. He has normal left ventricular function. 3. We will try to get the patient up and around more today home soon. Job ID: [id number]
--- NOTE | 2019-05-26 09:53 | PRG ---
DATE OF SERVICE: 05/26/2019 SUBJECTIVE: Mr. Loving is resting comfortably. OBJECTIVE: VITAL SIGNS: His blood pressure was low this morning in the 70 to 80 systolic range, now it is in the 90 systolic. He says his blood pressure drops after he takes losartan. LUNGS: Clear. CARDIAC: Normal S1 and normal S2. ABDOMEN: Soft and nontender. ASSESSMENT: 1. Pulmonary hypertension. 2. Normal left ventricular function. 3. Hypotension, possibly related to losartan. 4. Status post defibrillator implantation. PLAN: 1. Echocardiogram is ordered to make sure there is no pericardial fluid. 2. Stop losartan. 3. We will give him one bolus of fluid. 4. Hopefully, later can go to telemetry or the surgical floor depending on how he is doing. Job ID: [id number]
--- NOTE | 2019-05-26 10:26 | EKG ---
Test Reason : Blood Pressure : / mmHG Vent. Rate : 070 BPM Atrial Rate : 070 BPM P-R Int : 198 ms QRS Dur : 156 ms QT Int : 454 ms P-R-T Axes : 078 021 169 degrees QTc Int : 490 ms Undetermined rhythm Left bundle branch block Abnormal ECG Confirmed by OLIVA GATICA MD ([id number]) on 05/26/2019 10:26:39 AM Referred By: PERFECTO Confirmed By:OLIVA GATICA MD
--- NOTE | 2019-05-26 10:27 | EKG ---
Test Reason : ROSC Blood Pressure : / mmHG Vent. Rate : 079 BPM Atrial Rate : 079 BPM P-R Int : 216 ms QRS Dur : 158 ms QT Int : 440 ms P-R-T Axes : 072 -16 154 degrees QTc Int : 504 ms Sinus rhythm with 1st degree A-V block with occasional Premature ventricular complexes Left bundle branch block Abnormal ECG Confirmed by OLIVA GATICA MD ([id number]) on 05/26/2019 10:27:10 AM Referred By: Confirmed By:OLIVA GATICA MD
--- NOTE | 2019-05-26 10:27 | EKG ---
Test Reason : BRADYCARDIA Blood Pressure : / mmHG Vent. Rate : 064 BPM Atrial Rate : 064 BPM P-R Int : 192 ms QRS Dur : 142 ms QT Int : 466 ms P-R-T Axes : 059 -27 138 degrees QTc Int : 480 ms Normal sinus rhythm Left bundle branch block Abnormal ECG No previous ECGs available Confirmed by EN UMANZOR, OLIVA ([id number]) on 05/26/2019 10:27:14 AM Referred By: SUKHDEV Confirmed By:OLIVA GATICA MD
[2019-05-26] MEDS: Acetaminophen/Codeine 30-300mg Tablet PO PRN (11:50)
[2019-05-26] MEDS ORDERED: Potassium Chloride 20 MEQ TAB PO SCH (12:00)
--- NOTE | 2019-05-26 13:05 | PDOC.CPN ---
- Subjective Date: 05/26/19 Time: 08:00 Interval history: EP PROGRESS NOTE:05/26/19 Follow up fro cardiac arrest and ICD implant. Has axillary/rib pain from CPR. no pain at icd site. no palpitations. - Review of Systems General: denies: fever/chills, weight/appetite/sleep changes, night sweats, fatigue Respiratory: denies: cough, congestion, shortness of breath, exercise intolerance Cardiovascular: denies: chest pain, palpitation, edema, paroxysmal nocturnal dyspnea, orthopnea Gastrointestinal: denies: nausea, vomiting, diarrhea, constipation, abd pain, GI bleeding Musculoskeletal: reports: pain (ribs/axilla from CPR) - Objective Allergies/Adverse Reactions: Allergies Allergy/AdvReac Type Severity Reaction Status Date / Time No Known Allergies Allergy Unverified 05/20/19 16:31 Visit Medications: Current Medications Acetaminophen (Tylenol) 1,000 mg PO Q6H PRN PRN Reason: Moderate to Severe Pain (6-10) Last Admin: 05/22/19 20:18 Dose: 1,000 mg Acetaminophen/Codeine Phosphate (Tylenol #3) 1 tab PO Q4H PRN PRN Reason: Mild Pain (1-3) Acetaminophen/Codeine Phosphate (Tylenol #3) 2 tab PO Q4H PRN PRN Reason: Moderate Pain (4-6) Last Admin: 05/26/19 11:50 Dose: 2 tab Albuterol/Ipratropium (Duoneb) 3 ml EZPAP [id number] PRN PRN Reason: SOB &/or Wheezing Albuterol/Ipratropium (Duoneb) 3 ml EZPAP [id number] [facility] Last Admin: 05/26/19 10:30 Dose: 3 ml Arformoterol Tartrate (Brovana) 15 mcg NEB BID-RT TATYANA Last Admin: 05/26/19 07:06 Dose: Not Given Aspirin (Ecotrin) 81 mg PO DAILY [facility] Last Admin: 05/26/19 09:12 Dose: 81 mg Budesonide (Pulmicort Neb Solution) 0.5 mg NEB BID-RT TATYANA Last Admin: 05/26/19 07:05 Dose: 0.5 mg Cephalexin (Keflex) 500 mg PO QID [facility] Stop: 06/01/19 21:01 Last Admin: 05/26/19 11:54 Dose: 500 mg Enoxaparin Sodium (Lovenox) 40 mg SC 2100 [facility] Last Admin: 05/25/19 20:31 Dose: 40 mg Famotidine (Pepcid) 40 mg PO BID [facility] Last Admin: 05/26/19 09:13 Dose: 40 mg Guaifenesin (Mucinex) 600 mg PO Q12HR [facility] Last Admin: 05/26/19 09:13 Dose: 600 mg Hydralazine HCl (Apresoline) 10 mg SLOW IVP Q4H PRN PRN Reason: SBP > 180 and HR < 70 Sodium Chloride (Normal Saline 0.9%) 1,000 mls @ 50 mls/hr IV .Q20H [facility] Last Admin: 05/25/19 16:33 Dose: 1,000 mls Ibuprofen (Motrin) 600 mg PO Q6H PRN PRN Reason: Pain Ketorolac Tromethamine (Toradol) 15 mg IVP Q6HR [facility] Stop: 05/26/19 18:01 Last Admin: 05/26/19 11:49 Dose: 15 mg Lorazepam (Ativan) 2 mg SLOW IVP Q1H PRN PRN Reason: Breakthrough agitation Stop: 06/20/19 21:12 Morphine Sulfate (Morphine) 2 mg SLOW IVP Q1H PRN PRN Reason: BREAKTHROUGH PAIN/Agitation Stop: 06/20/19 21:12 Niacin (Niacin) 1,500 mg PO [facility] Last Admin: 05/25/19 20:31 Dose: 1,500 mg Ondansetron HCl (Zofran) 4 mg PO Q6H PRN PRN Reason: Nausea/Vomiting Ondansetron HCl (Zofran) 4 mg IVP Q6H PRN PRN Reason: Nausea/Vomiting Phenol (Chloraseptic Bevier 180 Ml Bot) 5 ml PO PRN PRN PRN Reason: Sore Throat Last Admin: 05/24/19 10:19 Dose: 1 spray Potassium Chloride (Klor-Con 10) 10 meq PO QAM-[facility] Last Admin: 05/26/19 09:12 Dose: 10 meq Potassium Chloride (K-Dur) 40 meq PO NOW [facility] Stop: 05/26/19 14:00 Last Admin: 05/26/19 11:50 Dose: 40 meq Sodium Chloride (Flush - Normal Saline) 10 ml IVF Q12HR [facility] Last Admin: 05/26/19 09:13 Dose: 10 ml Sodium Chloride (Flush - Normal Saline) 10 ml IVF PRN PRN PRN Reason: Saline Flush Tamsulosin HCl (Flomax) 0.4 mg PO DAILY [facility]NA Last Admin: 05/26/19 09:12 Dose: 0.4 mg Throat Lozenges (Cepastat Lozenges) 1 brigitte PO Q2H PRN PRN Reason: Sore Throat Last Admin: 05/24/19 06:32 Dose: 1 brigitte Tramadol HCl (Ultram) 50 mg PO Q4H PRN PRN Reason: Pain Last Admin: 05/24/19 10:06 Dose: 50 mg Vital Signs & Weight: Vital Signs Temp Pulse Resp BP Pulse Ox 05/26/19 11:43 98.0 F 05/26/19 10:30 88 20 96 05/26/19 07:57 98.0 F 05/26/19 07:43 99 05/26/19 07:07 98 05/26/19 07:05 91 26 H 98 05/26/19 06:01 105/67 05/26/19 03:29 98.7 F Admit Weight 238 lb Weight 265 lb 7 oz - Physical Exam General: alert & oriented x3 HEENT: mucus membranes moist Neck: supple neck, JVD/HJR Cardiac: regular rate and rhythm Lungs: decreased breath sounds Neuro: grossly intact Abdomen: unremarkable, other (+HJR) Extremities: no edema Skin: other (ICD incision: well approximated edges, no drainage, no redness) - Labs Result Diagrams: 05/22/19 04:15 05/26/19 03:40 Troponin/CKMB Troponin I 0.111 ng/mL (< 0.028) H 05/23/19 05:25 - Telemetry Sinus rhythms and dysrhythmias: sinus rhythm (PVCs- frequent) - Assessment/Plan Assessment/Plan: 1. Cardiac arrest -VF/TdP with full ACLS and multiple shocks 2. Premature Ventricular Complexes -frequent with compensatory pauses 3. Sigmoid volvulus -s/p colectomy 4. Pulmonary hypertension + JVD and HJR 5. Hypotension - echo done to rule out pericardial effusion after recent ICD. No effusion present 6. Dual chamber ICD - device check stable this AM. CXR stable, no pneumothorax. wires well positioned Echo negative for effusion. ICD working well. Hypotension seems to correlate with addition of losartan last night. Continue beta blockers for PVCs. LRL increased to 80bpm. 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 Post implant keflex PO x 7 days as ordered.
--- NOTE | 2019-05-26 15:45 | PRG ---
DATE OF SERVICE: 05/26/2019 SUBJECTIVE: Lee Loving is doing well today. He is tolerating his diet. He has had no problems overnight as he had a defibrillator placed yesterday. OBJECTIVE: VITAL SIGNS: Heart rate 84, blood pressure 99/55. LUNGS: Clear to auscultation. CARDIAC: Regular rate and rhythm without murmur or gallop. ABDOMEN: Soft. Bowel sounds present. He is passing stool and flatus. Laboratories unremarkable. Pathology of the resected colon reveals mucosal erosions and congestion consistent with volvulus, but no malignancy. ASSESSMENT AND PLAN: Doing well. At this point, the patient is ready for discharge home whenever Medical deems it necessary after his defibrillator placement. I will see him in my office in 2 to 3 weeks. He can shower and bathe and ambulate without restrictions. Job ID: [id number]
[2019-05-26] MEDS: Sodium Chloride 0.9% 1,000 ML IV SCH (17:24)
--- NOTE | 2019-05-26 17:45 | PDOC.HOSPP ---
- Subjective Encounter Date: 05/26/19 Subjective: Pt seen also in the room c/o Mild ICD site area pain , No dyspnea Had low Bp Earlier and improved with IVF possible Losartan related - Objective Vital Signs & Weight: Vital Signs (12 hours) Temp Pulse Resp BP Pulse Ox 05/26/19 16:37 97.5 F L 05/26/19 14:49 84 20 95 05/26/19 11:43 98.0 F 05/26/19 10:30 88 20 96 05/26/19 07:57 98.0 F 05/26/19 07:43 99 05/26/19 07:07 98 05/26/19 07:05 91 26 H 98 05/26/19 06:01 105/67 Weight Admit Weight 238 lb Weight 265 lb 7 oz Most Recent Monitor Data Heart Rate from ECG 104 NIBP 114/66 NIBP BP-Mean 82 Respiration from ECG 24 SpO2 94 I&O: 05/25/19 05/26/19 05/27/19 06:59 06:59 06:59 Intake Total 4915 2575 1080 Output Total 1775 1650 550 Balance 3140 925 530 Result Diagrams: 05/22/19 04:15 05/26/19 03:40 Hospitalist ROS - Review of Systems Constitutional: denies: fever Eyes: denies: pain ENT: denies: ear pain Respiratory: denies: cough Cardiovascular: reports: chest pain Gastrointestinal: denies: nausea Musculoskeletal: denies: neck pain Skin: denies: rash Neurological: denies: weakness - Medication Medications: Active Medications Generic Name Dose Route Start Last Admin Trade Name Freq PRN Reason Stop Dose Admin Acetaminophen 1,000 mg 05/22/19 09:35 05/22/19 20:18 Tylenol PO 1,000 mg Q6H PRN Administration Moderate to Severe Pain (6-10) Acetaminophen/Codeine Phosphate 2 tab 05/26/19 02:45 05/26/19 11:50 Tylenol #3 PO 2 tab Q4H PRN Administration Moderate Pain (4-6) Albuterol/Ipratropium 3 ml 05/24/19 11:00 05/26/19 14:49 Duoneb EZPAP 3 ml [id number] TATYANA Administration Arformoterol Tartrate 15 mcg 05/22/19 06:30 05/26/19 07:06 Brovana NEB Not Given BID-RT TATYANA Aspirin 81 mg 05/23/19 09:00 05/26/19 09:12 Ecotrin PO 81 mg DAILY TATYANA Administration Budesonide 0.5 mg 05/22/19 06:30 05/26/19 07:05 Pulmicort Neb Solution NEB 0.5 mg BID-RT TATYANA Administration Cephalexin 500 mg 05/26/19 09:00 05/26/19 17:15 Keflex PO 06/01/19 21:01 500 mg QID TATYANA Administration Famotidine 40 mg 05/22/19 21:00 05/26/19 09:13 Pepcid PO 40 mg BID TATYANA Administration Guaifenesin 600 mg 05/24/19 21:00 05/26/19 09:13 Mucinex PO 600 mg Q12HR TATYANA Administration Sodium Chloride 1,000 mls @ 50 mls/hr 05/25/19 15:13 05/26/19 17:24 Normal Saline 0.9% IV 1,000 mls .Q20H TATYANA Administration Ketorolac Tromethamine 15 mg 05/21/19 18:00 05/26/19 17:15 Toradol IVP 05/26/19 18:01 15 mg Q6HR TATYANA Administration Niacin 1,500 mg 05/21/19 21:00 05/25/19 20:31 Niacin PO 1,500 mg HS TATYANA Administration Phenol 5 ml 05/23/19 22:39 05/24/19 10:19 Chloraseptic Jones 180 Ml Bot PO 1 spray PRN PRN Administration Sore Throat Potassium Chloride 10 meq 05/23/19 08:00 05/26/19 09:12 Klor-Con 10 PO 10 meq QAM-WM TATYANA Administration Sodium Chloride 10 ml 05/21/19 09:00 05/26/19 09:13 Flush - Normal Saline IVF 10 ml Q12HR TATYANA Administration Tamsulosin HCl 0.4 mg 05/23/19 09:00 05/26/19 09:12 Flomax PO 0.4 mg DAILY TATYANA Administration Throat Lozenges 1 brigitte 05/23/19 22:39 05/24/19 06:32 Cepastat Lozenges PO 1 brigitte Q2H PRN Administration Sore Throat Tramadol HCl 50 mg 05/22/19 09:35 05/24/19 10:06 Ultram PO 50 mg Q4H PRN Administration Pain - Exam General Appearance: awake alert Eye: anicteric sclera ENT: normocephalic atraumatic Neck: supple Heart: no murmur Heart - other findings: ICD site mildly Respiratory: CTAB, no wheezes Gastrointestinal: soft Extremities: negative: no cyanosis Neurological: negative: cranial nerve grossly intact Musculoskeletal: negative: normal tone Psychiatric: negative: normal affect Hosp A/P - Plan s/p Cardiac arrest with VF and s/p ACLS multiple shocks s/p AICD placement , continue telemetry monitoring, s/p Amiodarone Sigmoid volvulus s/p laparotomy with sigmoid resection with primary anastamosis Tolerating diet having bowel movements Hypertension Hold losartan due to low BP Pulmonary HTN f/u Out patient DVT/GI prophyalxis with heparin plan discussed with pt , and nursing staff Continue PT/OT,
--- NOTE | 2019-05-26 17:59 | PRG ---
DATE OF SERVICE: 05/26/2019 SUBJECTIVE: Lee Loving had a defibrillator placed. He is upset because it was placed on his right upper extremity since somebody had placed the left upper extremity subclavian line when he came in septic. 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 Other than that, he has no complaints. OBJECTIVE: VITAL SIGNS: Stable. He is afebrile, heart rate is 84, respiratory rate is 20, oximetry is 95% on room air, and blood pressure 139/85. LUNGS: Clear. HEART: Regular rhythm. ABDOMEN: Soft. Minimally tender. EXTREMITIES: Without edema. DIAGNOSTIC STUDIES: Echocardiogram done, shows a normal ejection fraction, tiny pericardial effusion was seen today. IMPRESSION: 1. Status post placement of defibrillator. 2. Status post resection of his sigmoid volvulus. 3. Atelectasis, improved with his nebulizer treatments. 4. History of pulmonary hypertension. 5. Morning hypotension, likely related to medications (losartan given in the evening). He had hypotension prior to defibrillator placement. I felt this was secondary to abdominal third spacing of fluid after his laparotomy. There is no evidence of tamponade. He clinically looks good. We will continue to follow. I enjoyed my visits with him. Job ID: [id number]
[2019-05-26] MEDS ORDERED: Ibuprofen 600 MG TAB PO PRN (18:00)
[2019-05-26] MEDS: Niacin 500 MG TAB PO SCH (20:19)
[2019-05-27 04:47] LABS: #Eosinphils 0.4 thou/uL (0.0-0.7); #Lymphocytes 0.9 thou/uL (1.20-3.40); #Monocytes 0.7 thou/uL (0.11-0.59); #Neutrophils 4.3 thou/uL (1.40-6.50); %Basophils 0.3 % (0.0-1.0); %Eosinophils 6.3 % (0.0-10.0); %Lymphocytes 13.6 % (21.0-51.0); %Monocytes 11.6 % (0.0-10.0); %Neutrophils 68.3 % (42.0-75.0); Hemoglobin 11.2 g/dL (14.0-18.0); Mean Corpuscular HGB CONC 33.8 g/dL (32.0-36.0); Mean Corpuscular Hemoglobin 33.5 pg (27.0-31.0); Mean Corpuscular Volume 99.1 fL (78.0-98.0); Mean Platelet Volume 6.5 fL (7.4-10.4); Platelet Count 187 thou/uL (130-400); RBC Distribution Width 12.2 % (11.5-14.5); Red Blood Cell (RBC) Count 3.34 mill/uL (4.70-6.10); White Blood Cell (WBC) Count 6.3 thou/uL (4.8-10.8)
[2019-05-27 05:07] LABS: Anion Gap 14 mmol/L (10-20); BUN (Urea Nitrogen) 11 mg/dL (8.4-25.7); Calc. Creatinine Clearance 88 mL/min (70-130); Calcium 8.7 mg/dL (7.8-10.44); Carbon Dioxide 20 mmol/L (23-31); Chloride 100 mmol/L (98-107); Estimated GFR-MDRD 60; Glucose 96 mg/dL (83-110); Potassium 3.5 mmol/L (3.5-5.1); Sodium 130 mmol/L (136-145)
[2019-05-27] MEDS: Arformoterol 15 MCG/2 ML NEB NEB SCH ×2 (08:04→18:51)
[2019-05-27] MEDS: Budesonide 0.5 MG/2 ML NEB NEB SCH ×2 (08:05→18:51)
[2019-05-27] MEDS ORDERED: Potassium Chloride 20 MEQ TAB PO SCH (08:45)
--- NOTE | 2019-05-27 09:17 | PRG ---
DATE OF SERVICE: 05/27/2019 SUBJECTIVE: Mr. Loving is doing better. He is sore from the chest compressions. He also has quite a bit of edema still. OBJECTIVE: VITAL SIGNS: His blood pressure is 115/66, pulse 70. There are frequent premature contractions. LUNGS: Clear. CARDIAC: Normal S1. Normal S2. ASSESSMENT: 1. Pulmonary hypertension. 2. Status post emergency abdominal surgery. 3. Still volume overloaded, but he is mobilizing the fluid. 4. Still mildly hypokalemic, potassium 3.5. PLAN: 1. Continue to replete potassium. 2. Keep him one more day to make sure he is okay and can be released home tomorrow morning. Job ID: [id number]
[2019-05-27] MEDS: Aspirin 81 mg Enteric Coated Tablet PO SCH (09:23)
[2019-05-27] MEDS: Cephalexin 250 MG CAP PO SCH ×4 (09:23→20:55)
[2019-05-27] MEDS: Famotidine 20 MG TAB PO SCH ×2 (09:23→20:55)
[2019-05-27] MEDS: guaiFENesin ER 600 MG TAB PO SCH ×2 (09:23→20:55)
[2019-05-27] MEDS: Acetaminophen/Codeine 30-300mg Tablet PO PRN (09:24)
[2019-05-27] MEDS: Potassium Chloride 10 MEQ TAB PO SCH (09:27)
[2019-05-27] MEDS: Tamsulosin HCl 0.4 MG CAP PO SCH (09:27)
--- NOTE | 2019-05-27 10:26 | PDOC.CPN ---
- Subjective Date: 05/27/19 Time: 10:00 Interval history: EP PROGRESS NOTE:05/27/19 Follow up after cardiac arrest and ICD implant. Has axillary/rib pain from CPR. no pain at icd site. no palpitations. BP better today. - Review of Systems General: denies: fever/chills, weight/appetite/sleep changes, night sweats, fatigue Respiratory: denies: cough, congestion, shortness of breath, exercise intolerance Cardiovascular: denies: chest pain, palpitation, edema, paroxysmal nocturnal dyspnea, orthopnea Gastrointestinal: denies: nausea, vomiting, diarrhea, constipation, abd pain, GI bleeding Musculoskeletal: reports: pain (ribs/axilla) Neurological: denies: numbness, syncope, seizure, weakness - Objective Allergies/Adverse Reactions: Allergies Allergy/AdvReac Type Severity Reaction Status Date / Time No Known Allergies Allergy Unverified 05/20/19 16:31 Visit Medications: Current Medications Acetaminophen (Tylenol) 1,000 mg PO Q6H PRN PRN Reason: Moderate to Severe Pain (6-10) Last Admin: 05/22/19 20:18 Dose: 1,000 mg Acetaminophen/Codeine Phosphate (Tylenol #3) 1 tab PO Q4H PRN PRN Reason: Mild Pain (1-3) Acetaminophen/Codeine Phosphate (Tylenol #3) 2 tab PO Q4H PRN PRN Reason: Moderate Pain (4-6) Last Admin: 05/27/19 09:24 Dose: 2 tab Albuterol/Ipratropium (Duoneb) 3 ml EZPAP [id number] PRN PRN Reason: SOB &/or Wheezing Albuterol/Ipratropium (Duoneb) 3 ml EZPAP [id number] TATYANA Last Admin: 05/27/19 08:01 Dose: 3 ml Arformoterol Tartrate (Brovana) 15 mcg NEB BID-RT TATYANA Last Admin: 05/27/19 08:04 Dose: 15 mcg Aspirin (Ecotrin) 81 mg PO DAILY [facility] Last Admin: 05/27/19 09:23 Dose: 81 mg Budesonide (Pulmicort Neb Solution) 0.5 mg NEB BID-RT TATYANA Last Admin: 05/27/19 08:05 Dose: 0.5 mg Cephalexin (Keflex) 500 mg PO QID [facility] Stop: 06/01/19 21:01 Last Admin: 05/27/19 09:23 Dose: 500 mg Famotidine (Pepcid) 40 mg PO BID [facility] Last Admin: 05/27/19 09:23 Dose: 40 mg Guaifenesin (Mucinex) 600 mg PO Q12HR [facility] Last Admin: 05/27/19 09:23 Dose: 600 mg Hydralazine HCl (Apresoline) 10 mg SLOW IVP Q4H PRN PRN Reason: SBP > 180 and HR < 70 Ibuprofen (Motrin) 600 mg PO Q6H PRN PRN Reason: Pain Lorazepam (Ativan) 2 mg SLOW IVP Q1H PRN PRN Reason: Breakthrough agitation Stop: 06/20/19 21:12 Morphine Sulfate (Morphine) 2 mg SLOW IVP Q1H PRN PRN Reason: BREAKTHROUGH PAIN/Agitation Stop: 06/20/19 21:12 Niacin (Niacin) 1,500 mg PO HS [facility] Last Admin: 05/26/19 20:19 Dose: 1,500 mg Ondansetron HCl (Zofran) 4 mg PO Q6H PRN PRN Reason: Nausea/Vomiting Ondansetron HCl (Zofran) 4 mg IVP Q6H PRN PRN Reason: Nausea/Vomiting Phenol (Chloraseptic [place] 180 Ml Bot) 5 ml PO PRN PRN PRN Reason: Sore Throat Last Admin: 05/24/19 10:19 Dose: 1 spray Potassium Chloride (Klor-Con 10) 10 meq PO QAM-[facility] Last Admin: 05/27/19 09:27 Dose: 10 meq Potassium Chloride (K-Dur) 40 meq PO NOW [facility] Stop: 05/27/19 10:45 Last Admin: 05/27/19 09:26 Dose: 40 meq Sodium Chloride (Flush - Normal Saline) 10 ml IVF Q12HR [facility] Last Admin: 05/27/19 09:27 Dose: 10 ml Sodium Chloride (Flush - Normal Saline) 10 ml IVF PRN PRN PRN Reason: Saline Flush Tamsulosin HCl (Flomax) 0.4 mg PO DAILY [facility] Last Admin: 05/27/19 09:27 Dose: 0.4 mg Throat Lozenges (Cepastat Lozenges) 1 brigitte PO Q2H PRN PRN Reason: Sore Throat Last Admin: 05/24/19 06:32 Dose: 1 brigitte Tramadol HCl (Ultram) 50 mg PO Q4H PRN PRN Reason: Pain Last Admin: 05/24/19 10:06 Dose: 50 mg Vital Signs & Weight: Vital Signs Temp Pulse Resp Pulse Ox 05/27/19 08:01 83 20 95 05/27/19 08:00 96 05/27/19 07:24 97.2 F L 05/27/19 04:00 97.0 F L 05/26/19 23:47 97.0 F L Admit Weight 238 lb Weight 267 lb 2 oz - Physical Exam General: alert & oriented x3 HEENT: mucus membranes moist Neck: supple neck, midline trachea Cardiac: regular rate and rhythm Lungs: clear to auscultation Neuro: grossly intact - Labs Result Diagrams: 05/27/19 04:25 05/27/19 04:25 Troponin/CKMB Troponin I 0.111 ng/mL (< 0.028) H 05/23/19 05:25 - Telemetry Sinus rhythms and dysrhythmias: other (frequent PVCs) - Assessment/Plan Assessment/Plan: Assessment/Plan: 1. Cardiac arrest -VF/TdP with full ACLS and multiple defibrillations 2. Premature Ventricular Complexes -frequent with compensatory pauses -consider beta guero therapy in future if BP remains stable 3. Sigmoid volvulus -s/p colectomy 4. Pulmonary hypertension + JVD and HJR 5. Hypotension - echo done to rule out pericardial effusion after recent ICD. No effusion present -BP improved today now that losartan has been stopped 6. Dual chamber ICD - device check stable this AM. CXR stable, no pneumothorax. wires well positioned Echo negative for effusion. ICD working well. Hypotension seems to correlate with addition of losartan last night. Continue beta blockers for PVCs. LRL increased to 80bpm. 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 Post implant keflex PO x 7 days as ordered.
[2019-05-27 12:27] VITALS: BMI 38.3
--- NOTE | 2019-05-27 13:20 | PDOC.HOSPP ---
- Subjective Encounter Date: 05/27/19 Subjective: Pt seen feeling better sitting in bed in the room , Denies complaint walking normally - Objective Vital Signs & Weight: Vital Signs (12 hours) Temp Pulse Resp Pulse Ox 05/27/19 11:13 97.4 F L 05/27/19 11:11 84 16 05/27/19 08:01 83 20 95 05/27/19 08:00 96 05/27/19 07:24 97.2 F L 05/27/19 04:00 97.0 F L Weight Admit Weight 238 lb Weight 267 lb 2 oz Most Recent Monitor Data Heart Rate from ECG 87 NIBP 121/66 NIBP BP-Mean 84 Respiration from ECG 32 SpO2 93 I&O: 05/26/19 05/27/19 05/28/19 06:59 06:59 06:59 Intake Total 2575 1830 Output Total 1650 1150 500 Balance 925 680 -500 Result Diagrams: 05/27/19 04:25 05/27/19 04:25 Hospitalist ROS - Review of Systems Eyes: denies: pain ENT: denies: ear pain Respiratory: denies: cough Cardiovascular: reports: edema. denies: chest pain Gastrointestinal: denies: nausea Musculoskeletal: denies: neck pain Neurological: denies: weakness - Medication Medications: Active Medications Generic Name Dose Route Start Last Admin Trade Name Freq PRN Reason Stop Dose Admin Acetaminophen 1,000 mg 05/22/19 09:35 05/22/19 20:18 Tylenol PO 1,000 mg Q6H PRN Administration Moderate to Severe Pain (6-10) Acetaminophen/Codeine Phosphate 2 tab 05/26/19 02:45 05/27/19 09:24 Tylenol #3 PO 2 tab Q4H PRN Administration Moderate Pain (4-6) Albuterol/Ipratropium 3 ml 05/24/19 11:00 05/27/19 11:11 Duoneb EZPAP 3 ml [id number] TATYANA Administration Arformoterol Tartrate 15 mcg 05/22/19 06:30 05/27/19 08:04 Brovana NEB 15 mcg BID-RT TATYANA Administration Aspirin 81 mg 05/23/19 09:00 05/27/19 09:23 Ecotrin PO 81 mg DAILY TATYANA Administration Budesonide 0.5 mg 05/22/19 06:30 05/27/19 08:05 Pulmicort Neb Solution NEB 0.5 mg BID-RT TATYANA Administration Cephalexin 500 mg 05/26/19 09:00 05/27/19 09:23 Keflex PO 06/01/19 21:01 500 mg QID TATYANA Administration Famotidine 40 mg 05/22/19 21:00 05/27/19 09:23 Pepcid PO 40 mg BID TATYANA Administration Guaifenesin 600 mg 05/24/19 21:00 05/27/19 09:23 Mucinex PO 600 mg Q12HR TATYANA Administration Niacin 1,500 mg 05/21/19 21:00 05/26/19 20:19 Niacin PO 1,500 mg HS TATYANA Administration Phenol 5 ml 05/23/19 22:39 05/24/19 10:19 Chloraseptic [place] 180 Ml Bot PO 1 spray PRN PRN Administration Sore Throat Potassium Chloride 10 meq 05/23/19 08:00 05/27/19 09:27 Klor-Con 10 PO 10 meq QAM-WM TATYANA Administration Sodium Chloride 10 ml 05/21/19 09:00 05/27/19 09:27 Flush - Normal Saline IVF 10 ml Q12HR TATYANA Administration Tamsulosin HCl 0.4 mg 05/23/19 09:00 05/27/19 09:27 Flomax PO 0.4 mg DAILY TATYANA Administration Throat Lozenges 1 brigitte 05/23/19 22:39 05/24/19 06:32 Cepastat Lozenges PO 1 brigitte Q2H PRN Administration Sore Throat Tramadol HCl 50 mg 05/22/19 09:35 05/24/19 10:06 Ultram PO 50 mg Q4H PRN Administration Pain - Exam General Appearance: awake alert Eye: anicteric sclera ENT: normocephalic atraumatic Neck: supple Heart: irregular Respiratory: no wheezes Gastrointestinal: soft Extremities: no cyanosis Skin: no lesions Neurological: cranial nerve grossly intact Musculoskeletal: normal tone Psychiatric: normal affect Hosp A/P - Plan s/p Cardiac arrest with VF and s/p ACLS multiple shocks s/p AICD placement , continue telemetry monitoring, s/p Amiodarone Sigmoid volvulus s/p laparotomy with sigmoid resection with primary anastamosis Tolerating diet having bowel movements Hypertension Hold losartan due to low BP Pulmonary HTN f/u Out patient Hyponatremia Most likely due to excessive water intake advised to reduce water intake DVT/GI prophyalxis with heparin plan discussed with pt , and nursing staff Continue PT/OT, Possible dc next 24 hours
[2019-05-27] MEDS: Sodium Chloride 0.9% 1,000 ML IV SCH (16:37)
[2019-05-27] MEDS: Acetaminophen 500 MG TAB PO PRN (20:53)
[2019-05-27] MEDS: Niacin 500 MG TAB PO SCH (20:53)
[2019-05-28 00:55] VITALS: BP 128/72
[2019-05-28 04:47] LABS: #Eosinphils 0.4 thou/uL (0.0-0.7); #Lymphocytes 0.8 thou/uL (1.20-3.40); #Monocytes 0.7 thou/uL (0.11-0.59); #Neutrophils 5.4 thou/uL (1.40-6.50); %Basophils 0.2 % (0.0-1.0); %Eosinophils 5.3 % (0.0-10.0); %Lymphocytes 10.4 % (21.0-51.0); %Monocytes 9.1 % (0.0-10.0); Hemoglobin 11.3 g/dL (14.0-18.0); Mean Corpuscular HGB CONC 33.3 g/dL (32.0-36.0); Mean Corpuscular Hemoglobin 33.2 pg (27.0-31.0); Mean Corpuscular Volume 99.7 fL (78.0-98.0); Mean Platelet Volume 6.2 fL (7.4-10.4); Platelet Count 210 thou/uL (130-400); RBC Distribution Width 12.3 % (11.5-14.5); Red Blood Cell (RBC) Count 3.41 mill/uL (4.70-6.10); White Blood Cell (WBC) Count 7.2 thou/uL (4.8-10.8)
[2019-05-28 05:13] LABS: Anion Gap 15 mmol/L (10-20); BUN (Urea Nitrogen) 11 mg/dL (8.4-25.7); Calc. Creatinine Clearance 92 mL/min (70-130); Carbon Dioxide 19 mmol/L (23-31); Chloride 102 mmol/L (98-107); Estimated GFR-MDRD 63; Glucose 96 mg/dL (83-110); Potassium 3.6 mmol/L (3.5-5.1); Sodium 132 mmol/L (136-145)
[2019-05-28] MEDS: Arformoterol 15 MCG/2 ML NEB NEB SCH (07:36)
[2019-05-28] MEDS: Budesonide 0.5 MG/2 ML NEB NEB SCH (07:36)
[2019-05-28 08:13] VITALS: TEMP 98.2
--- NOTE | 2019-05-28 08:27 | PRG ---
DATE OF SERVICE: 05/27/2019 SUBJECTIVE: Inder is ready to go home. He does inpatient rehab. OBJECTIVE: VITAL SIGNS: Heart rate is in 80s, blood pressure 121/66, respiratory rate 32. LUNGS: Clear. HEART: Regular rhythm. ABDOMEN: Soft. LABORATORY DATA: White count 6.3, hemoglobin 11.2, platelets 187, sodium 130, potassium 3.5, chloride 100, bicarb 20, BUN 11, creatinine 1.17. IMPRESSION: 1. Status post defibrillator. 2. Ventricular rhythm disturbance in recovery room that may have been related to respiratory depression associated with fentanyl from my discussion with Dr. Pereyra. 3. Status post resection of sigmoid volvulus . 4. Pulmonary hypertension. 5. Abdominal third spacing postoperatively, he is mobilizing fluid now adequate, I believe he would be stable to go home. Job ID: [id number]
[2019-05-28] MEDS: Aspirin 81 mg Enteric Coated Tablet PO SCH (09:38)
[2019-05-28] MEDS: guaiFENesin ER 600 MG TAB PO SCH (09:38)
[2019-05-28] MEDS: Potassium Chloride 10 MEQ TAB PO SCH (09:38)
[2019-05-28] MEDS: Tamsulosin HCl 0.4 MG CAP PO SCH (09:38)
[2019-05-28] MEDS: Acetaminophen/Codeine 30-300mg Tablet PO PRN (09:39)
[2019-05-28] MEDS: Cephalexin 250 MG CAP PO SCH ×2 (09:39→13:04)
[2019-05-28] MEDS: Famotidine 20 MG TAB PO SCH (09:39)
[2019-05-28] MEDS ORDERED: Potassium Chloride 20 MEQ TAB PO SCH (09:45)
--- NOTE | 2019-05-28 10:08 | PRG ---
DATE OF SERVICE: 05/28/2019 SUBJECTIVE: Mr. Loving feels better today. No complaints. He still has some edema. OBJECTIVE: VITAL SIGNS: Blood pressure 116/66 and pulse 80 with frequent PVCs. LUNGS: Clear. CARDIAC: Normal S1 and normal S2. ABDOMEN: Soft and nontender. ASSESSMENT: 1. Pulmonary hypertension. 2. Status post abdominal surgery. 3. Status post ventricular fibrillation with successful defibrillation. 4. Recent defibrillator implantation. 5. Hypokalemia, potassium still low at 3.6. PLAN: 1. Additional potassium. 2. Okay to go home on current medical regimen, potassium 20 mEq a day and tamsulosin bedtime. We taken him off losartan due to low blood pressure. Job ID: [id number]
--- NOTE | 2019-05-28 13:38 | PDOC.CPN ---
- Subjective Date: 05/28/19 Time: 08:00 Interval history: EP PROGRESS NOTE:05/28/19 Follow up after cardiac arrest and ICD implant. Has axillary/rib pain from CPR. no pain at icd site. no palpitations. BP remains stable - Review of Systems General: denies: fever/chills, weight/appetite/sleep changes, night sweats, fatigue Respiratory: denies: cough, congestion, shortness of breath, exercise intolerance Cardiovascular: denies: chest pain, palpitation, edema, paroxysmal nocturnal dyspnea, orthopnea Gastrointestinal: denies: nausea, vomiting, diarrhea, constipation, abd pain, GI bleeding Musculoskeletal: reports: pain, tenderness, stiffness. denies: swelling, arthritis/arthralgias - Objective Allergies/Adverse Reactions: Allergies Allergy/AdvReac Type Severity Reaction Status Date / Time No Known Allergies Allergy Unverified 05/20/19 16:31 Visit Medications: Current Medications Acetaminophen (Tylenol) 1,000 mg PO Q6H PRN PRN Reason: Moderate to Severe Pain (6-10) Last Admin: 05/27/19 20:53 Dose: 1,000 mg Acetaminophen/Codeine Phosphate (Tylenol #3) 1 tab PO Q4H PRN PRN Reason: Mild Pain (1-3) Acetaminophen/Codeine Phosphate (Tylenol #3) 2 tab PO Q4H PRN PRN Reason: Moderate Pain (4-6) Last Admin: 05/28/19 09:39 Dose: 2 tab Albuterol/Ipratropium (Duoneb) 3 ml EZPAP [id number] PRN PRN Reason: SOB &/or Wheezing Albuterol/Ipratropium (Duoneb) 3 ml EZPAP [id number] [facility] Last Admin: 05/28/19 10:46 Dose: Not Given Arformoterol Tartrate (Brovana) 15 mcg NEB BID-RT TATYANA Last Admin: 05/28/19 07:36 Dose: Not Given Aspirin (Ecotrin) 81 mg PO DAILY [facility] Last Admin: 05/28/19 09:38 Dose: 81 mg Budesonide (Pulmicort Neb Solution) 0.5 mg NEB BID-RT TATYANA Last Admin: 05/28/19 07:36 Dose: Not Given Cephalexin (Keflex) 500 mg PO QID [facility] Stop: 06/01/19 21:01 Last Admin: 05/28/19 13:04 Dose: 500 mg Famotidine (Pepcid) 40 mg PO BID [facility] Last Admin: 05/28/19 09:39 Dose: 40 mg Guaifenesin (Mucinex) 600 mg PO Q12HR [facility] Last Admin: 05/28/19 09:38 Dose: 600 mg Hydralazine HCl (Apresoline) 10 mg SLOW IVP Q4H PRN PRN Reason: SBP > 180 and HR < 70 Ibuprofen (Motrin) 600 mg PO Q6H PRN PRN Reason: Pain Lorazepam (Ativan) 2 mg SLOW IVP Q1H PRN PRN Reason: Breakthrough agitation Stop: 06/20/19 21:12 Morphine Sulfate (Morphine) 2 mg SLOW IVP Q1H PRN PRN Reason: BREAKTHROUGH PAIN/Agitation Stop: 06/20/19 21:12 Niacin (Niacin) 1,500 mg PO HS [facility] Last Admin: 05/27/19 20:53 Dose: 1,500 mg Ondansetron HCl (Zofran) 4 mg PO Q6H PRN PRN Reason: Nausea/Vomiting Ondansetron HCl (Zofran) 4 mg IVP Q6H PRN PRN Reason: Nausea/Vomiting Phenol (Chloraseptic [place] 180 Ml Bot) 5 ml PO PRN PRN PRN Reason: Sore Throat Last Admin: 05/24/19 10:19 Dose: 1 spray Potassium Chloride (Klor-Con 10) 20 meq PO QAM-[facility] Sodium Chloride (Flush - Normal Saline) 10 ml IVF Q12HR [facility] Last Admin: 05/28/19 09:40 Dose: 10 ml Sodium Chloride (Flush - Normal Saline) 10 ml IVF PRN PRN PRN Reason: Saline Flush Tamsulosin HCl (Flomax) 0.4 mg PO DAILY [facility] Last Admin: 05/28/19 09:38 Dose: 0.4 mg Throat Lozenges (Cepastat Lozenges) 1 brigitte PO Q2H PRN PRN Reason: Sore Throat Last Admin: 05/24/19 06:32 Dose: 1 brigitte Tramadol HCl (Ultram) 50 mg PO Q4H PRN PRN Reason: Pain Last Admin: 05/24/19 10:06 Dose: 50 mg Vital Signs & Weight: Vital Signs Temp Pulse Ox 05/28/19 08:00 98.2 F 05/28/19 07:42 99 05/28/19 03:09 97.6 F Admit Weight 238 lb Weight 267 lb 2 oz - Physical Exam General: alert & oriented x3 HEENT: mucus membranes moist Neck: supple neck Cardiac: regular rate and rhythm Lungs: decreased breath sounds Neuro: grossly intact Abdomen: unremarkable, active bowel sounds - Labs Result Diagrams: 05/28/19 04:40 05/28/19 04:40 Troponin/CKMB Troponin I 0.111 ng/mL (< 0.028) H 05/23/19 05:25 - Telemetry Sinus rhythms and dysrhythmias: sinus rhythm - Assessment/Plan Assessment/Plan: Assessment/Plan: 1. Cardiac arrest -VF/TdP with full ACLS and multiple defibrillations 2. Premature Ventricular Complexes -frequent with compensatory pauses -consider beta guero therapy in future if BP remains stable 3. Sigmoid volvulus -s/p colectomy 4. Pulmonary hypertension + JVD and HJR 5. Hypotension - echo done to rule out pericardial effusion after recent ICD. No effusion present - BP stable 6. Dual chamber ICD - device check stable this AM. CXR stable, no pneumothorax. wires well positioned Consider beta blockers for PVCs if BP remains stable. LRL increased to 80bpm. Will monitor through ICD alf. Post implant keflex PO x 7 days as ordered. EP signing off. Will need 2 week wound check with TCA
--- NOTE | 2019-05-29 02:31 | DIS ---
DATE OF ADMISSION: 05/20/2019 DATE OF DISCHARGE: 05/28/2019 DISCHARGE DIAGNOSES: 1. Status post cardiac arrest with ventricular fibrillation and status post ACLS with multiple shocks, status post AICD placement on 05/25/2019. 2. History of pulmonary hypertension. 3. Hypertension. 4. Sigmoid volvulus status post laparotomy with sigmoid resection with primary anastomosis. 5. Hyponatremia, improving. 6. Possible BPH. PHYSICAL EXAMINATION: VITAL SIGNS: Blood pressure 130/65, pulse 85, respirations 18, oxygen saturation 94%. GENERAL: The patient is alert, awake, oriented, in no distress. CHEST: Normal vesicular breathing. HEART: Sounds normal. ABDOMEN: Mildly distended. Bowel sounds audible. EXTREMITIES: Mild edema of feet positive. LABORATORY DATA: On discharge; CBC unremarkable except hemoglobin 11.3. BMP unremarkable except sodium 132, creatinine 1.12. UA negative. Echocardiogram, ejection fraction 60% to 65%. Small pericardial effusion. No evidence of tamponade on second study. No right atrial or right ventricular collapse. HOSPITAL SUMMARY: The patient, Inder Howard was admitted on 05/21/2019. The patient had volvulus and had laparotomy with sigmoid resection and primary anastomosis. The patient after the procedure later developed during stay cardiac arrest with ventricular fibrillation and had ACLS protocol with multiple shocks. The patient admitted to ICU, evaluated by Cardiology and EP physician. The patient had AICD placement on 05/25/2019, status post amiodarone drip. The patient currently stable, mobilized active. No shortness of breath. Cleared by cardio and assistant auto center manager to discharge. The patient also had hypertension and blood pressure drops after taking losartan, so discontinued the losartan. The patient also has pulmonary hypertension, being recommended to follow up outpatient. The patient had mild hyponatremia which is improving with fluid restriction. The patient also had mild edema of feet positive, recommended to continue Lasix and spironolactone, which is a home dose. The patient is currently stable, being discharged home. Advised to follow up with the PCP, Surgery, Cardiology, and assistant auto center manager. The patient being discharged in a stable condition. The patient will get outpatient physical therapy. Plan discussed with the patient, , and nursing staff. Job ID: [id number]
[2019-05-29] MEDS ORDERED: Potassium Chloride 10 MEQ TAB PO SCH (08:00)
== END 2019-05-28 13:41 | disposition home or self-care (01) | DRG 329 ==
LOC: SCSER 12:25 → SURG A 14:40 → SCSER 15:56 → IMCU/EMU 05-21 18:25 → CCU 05-21 21:17 → IMCU/EMU 05-23 20:26
PROVIDERS: ADMIT Family Medicine; ATTEND Family Medicine
PROC: 0DNN8ZZ Release Sigmoid Colon, Via Natural or Artificial Opening Endoscopic (ICD-10-PCS; 2019-05-20)
PROC: 5A12012 Performance of Cardiac Output, Single, Manual (ICD-10-PCS; 2019-05-20)
PROC: 0DBN0ZZ Excision of Sigmoid Colon, Open Approach (ICD-10-PCS; principal; 2019-05-21)
PROC: 0JH608Z Insertion of Defibrillator Generator into Chest Subcutaneous Tissue and Fascia, Open Approach (ICD-10-PCS; 2019-05-25)
PROC: 02H63KZ Insertion of Defibrillator Lead into Right Atrium, Percutaneous Approach (ICD-10-PCS; 2019-05-25)
PROC: 02HK3KZ Insertion of Defibrillator Lead into Right Ventricle, Percutaneous Approach (ICD-10-PCS; 2019-05-25)
DX: K56.2 Volvulus (principal); I46.9 Cardiac arrest, cause unspecified; I49.01 Ventricular fibrillation; E87.2 Acidosis; I13.0 Hypertensive heart and chronic kidney disease with heart failure and stage 1 through stage 4 chronic kidney disease, or unspecified chronic kidney disease; N17.9 Acute kidney failure, unspecified; J98.11 Atelectasis; E87.1 Hypo-osmolality and hyponatremia; K21.9 Gastro-esophageal reflux disease without esophagitis; E78.5 Hyperlipidemia, unspecified; E78.00 Pure hypercholesterolemia, unspecified; I27.20 Pulmonary hypertension, unspecified; I50.9 Heart failure, unspecified; G47.33 Obstructive sleep apnea (adult) (pediatric); K44.9 Diaphragmatic hernia without obstruction or gangrene; Z96.652 Presence of left artificial knee joint; N18.9 Chronic kidney disease, unspecified; K22.70 Barrett's esophagus without dysplasia; E66.01 Morbid (severe) obesity due to excess calories; E87.6 Hypokalemia; I95.2 Hypotension due to drugs; T46.2X5A Adverse effect of other antidysrhythmic drugs, initial encounter; Z90.49 Acquired absence of other specified parts of digestive tract; Z68.38 Body mass index [BMI] 38.0-38.9, adult; R06.03 Acute respiratory distress; I44.7 Left bundle-branch block, unspecified; R33.9 Retention of urine, unspecified; N40.1 Benign prostatic hyperplasia with lower urinary tract symptoms
CPT/HCPCS: 33249; 36005; 36415; 36416; 71045; 74019; 74177; 75820; 80048; 80053; 81003; 82805; 83605; 83690; 83735; 84484; 85025; 88307; 93005; 93010; 93306; 94002; 94003; 94640; C1721; C1777; C1898; C9113; J0131; J0282; J0690; J1100; J1650; J1885; J1940; J2001; J2250; J2260; J2310; J2370; J2405; J2550; J2704; J3010; J3475; J3480; J3490; J7070; J7120; J7620; J7626; Q9967; S0020; S0028

== ENCOUNTER 2019-07-14 12:51 | Outpatient (CLI) | payer MEDICARE, BC | END 2019-07-14 12:52 | disposition home or self-care (01) | LOC: EDSTATUS 13:00 | PROVIDERS: ATTEND Internal Medicine Critical Care Medicine | DX: J41.1 Mucopurulent chronic bronchitis (principal) ==